=== PATIENT | female | born 1970 | race Caucasian/White ===

== ENCOUNTER 2022-08-02 13:39 | Inpatient (IN) | payer OTHER, SELFPAY ==
--- NOTE | 2022-08-02 | ECG_ITS ---
Test Reason : MEDICAL CLEARINCE Blood Pressure : / mmHG Vent. Rate : 093 BPM Atrial Rate : 093 BPM P-R Int : 112 ms QRS Dur : 086 ms QT Int : 342 ms P-R-T Axes : 045 069 028 degrees QTc Int : 425 ms Normal sinus rhythm Normal ECG No previous ECGs available Referred By: Anny Trevizo Electronically Signed By:Toro Bloom
[2022-08-02 13:55] VITALS: BP 116/66; PULSE 105; RESP 18; TEMP 36.8; O2SAT 99; BMI 28.3
--- NOTE | 2022-08-02 14:03 | ED.PSYCH ---
HPI - Psych General Chief Complaint: Psychiatric Symptoms Stated Complaint: SEC 12, PARANOID PER EMS Time Seen by Provider: 08/02/22 13:53 Source: patient and EMS Mode of arrival: EMS Limitations: no limitations History of Present Illness HPI Narrative: New 2-year-old female who lives with her mother presents via EMS after failure to thrive not taking care of herself since her mother passed in January there are concerns for safety she has been paranoid delusional. Patient told someone that she was going to be departed [place] and that she is going to get a shot in her neck. Patient denies SI and states that she is fine and does not need to be bothered. complaint: suicidal ideation Related Data Home Medications Medication Instructions Recorded Confirmed lorazepam 0.5 mg tablet 0.5 mg PO TID PRN anxiety 08/02/22 08/02/22 trazodone 50 mg tablet 25 mg PO BEDTIME PRN insomnia 08/02/22 08/02/22 Allergies Allergy/AdvReac Type Severity Reaction Status Date / Time No Known Allergies Allergy Unverified 11/14/19 16:42 Review of Systems Review of Systems: Review of systems: General: Patient denies any fever chills recent illness or falls Musculoskeletal: Denies back pain or body aches or other injuries HEENT: denies headache, runny nose, ear pain Respiratory: denies shortness of breath, cough Cardiovascular: no chest pain or palpitations : denies dysuria, frequency Abdomen: no nausea vomiting denies abdominal pain Extremities: no swelling, no pain Skin: no diaphoresis Yes all other systems are reviewed and are negative PMFSH Social History Social History Advance Directives: No Advance Directives Information Provided: No Healthcare Proxy: No Guardian: No Physical Exam Vital Signs: Vital Signs: Last Vital Signs Temp 98.3 F 08/02/22 13:55 Pulse 105 H 08/02/22 13:55 Resp 16 08/02/22 16:08 BP 116/66 08/02/22 13:55 Pulse Ox 99 08/02/22 13:55 O2 Del Method Room Air 08/02/22 13:55 BMI result Body Mass Index 28.3 General: Well-appearing well-nourished in no signs of distress HEENT: Normocephalic atraumatic Neck: No signs of JVD, no masses no tenderness or lymphadenopathy Cardiovascular: Regular rate and rhythm Respiratory: Clear to auscultation bilaterally Abdomen: Soft nontender no masses Extremities: Normal pedal pulses no signs of edema Skin: Dry warm no rashes Back: No tenderness full ROM Course Reevaluation(s) Reevaluation #1: Patient is seen by the crisis they were unsure if the patient met criteria for section 12. I do agree she is not homicidal or suicidal but I do think the patient has impaired judgment is not safe to go home. we did but the patient has Section 12 patient be signed out pending placement Medical Decision Making Medical Decision Making [facility] Narrative: Concern for paranoia and delusions patient has likely baseline minimal problems combined with the grieving process is aspirating current condition patient is also 52 lives mother I do feel that this patient will benefit from crisis evaluation Differential Diagnosis Differential Diagnoses: The differential diagnosis associated with the presentation includes Suicide ideation acute psychosis grief Admission/Observation Consideration of admission/observation: Escalation of care including admission/observation considered Consult Healthcare Provider Management of the patient was discussed with: Interactive Web Developer Lab Data [facility] Lab Attestation statement: I reviewed the patient's lab results. 08/02/22 14:16 08/02/22 14:16 Labs: Lab Results 08/02/22 08/02/22 08/02/22 Range/Units 14:16 14:16 17:20 WBC 15.7 H (4.8-10.8) X10*3/uL RBC 5.05 (4.20-5.50) X10*6/uL Hgb 15.4 (12.0-16.0) g/dl Hct 46.0 (37.0-47.0) % MCV 91.1 (80.0-98.0) fL MCH 30.5 (27.0-33.0) pg MCHC 33.5 (31.0-35.0) g/dl RDW 12.2 (11.0-16.0) % Plt Count 387 (160-400) X10*3/uL MPV 10.5 (9.4-12.3) fL Immature Gran % (Auto) 0.4 (0.0-0.4) % Neut % (Auto) 80.7 H (45-73) % Lymph % (Auto) 12.3 L (20-40) % [place] % (Auto) 6.1 (2-11) % Eos % (Auto) 0.2 (0-4) % Baso % (Auto) 0.3 (0-2) % Lymph # (Auto) 1.9 (1.2-4.9) X10*3/uL [place] # (Auto) 1.0 (0.1-1.2) X10*3/uL Eos # (Auto) 0.0 (0.0-0.4) X10*3/uL Baso # (Auto) 0.0 (0.0-0.2) X10*3/uL Abs Immat Gran (auto) 0.06 H (0.00-0.03) X10*3/uL Absolute Neuts (auto) 12.6 H (2.0-8.3) x10*3/uL Absolute Nucleated RBC 0.000 (0.0-0.012) X10*3/uL Nucleated RBC % (auto) 0.0 (0.0-0.2) /100WBC Sodium 141 (135-145) mmol/L Potassium 3.7 (3.3-5.1) mmol/L Chloride 103 (96-108) mmol/L Carbon Dioxide 25 (22-29) mmol/L Anion Gap 17 (12-20) BUN 21 H (9-16) mg/dL Creatinine 0.70 (0.5-1.4) mg/dL Estim Creat Clear Calc 94.2 Estimated GFR > 60 Random Glucose 93 (60-115) mg/dL Calcium 10.3 H (8.4-10.2) mg/dL Total Bilirubin 1.9 H (0.0-1.0) mg/dL Direct Bilirubin 0.6 H (0.0-0.5) mg/dL AST 24 (5-31) U/L ALT 26 (0-31) U/L Alkaline Phosphatase 110 (39-117) U/L Total Protein 8.4 H (6.5-8.0) g/dL Albumin 4.6 (3.5-5.0) g/dL Lipase 23 (8-78) U/L Urine Opiates Screen Not Detected (Not Detect) Urine Fentanyl Screen Not Detected (Not Detect) Ur Barbiturates Screen Not Detected (Not Detect) Ur Phencyclidine Scrn Not Detected (Not Detect) Ur Amphetamines Screen Not Detected (Not Detect) U Benzodiazepines Scrn Not Detected (Not Detect) Urine Cocaine Screen Not Detected (Not Detect) U Marijuana (THC) Screen Not Detected (Not Detect) Ethyl Alcohol < 10 mg/dL Independent Historian Clinical information obtained from an independent historian. History obtained from or confirmed by: EMS External Record Review External record reviewed: Inpatient record No previous records for review Social Determinants Patient?s care significantly limited by Social Determinants of Health including: Inadequate housing and Problems related to primary support group Discharge Plan Discharge Clinical Impression: Acute psychosis Patient Disposition: Still a Patient Prescriptions: No Action trazodone 50 mg tablet 25 mg PO BEDTIME PRN (Reason: insomnia) lorazepam 0.5 mg tablet 0.5 mg PO TID PRN (Reason: anxiety) Interventions: [place]-Suicide Risk Severity Scale Last Done: 08/02/22 13:57
[2022-08-02 14:20] LABS: MANUAL DIFF FLAG NO
[2022-08-02 14:22] LABS: Basophils Percent Auto 0.3 % (0-2); Eosinophils Percent Auto 0.2 % (0-4); Hemoglobin 15.4 g/dl (12.0-16.0); Imm Gran Abs Auto 0.06 X10*3/uL (0.00-0.03); Imm Gran Pct Auto 0.4 % (0.0-0.4); Lymphocytes Absolute Auto 1.9 X10*3/uL (1.2-4.9); Lymphocytes Percent Auto 12.3 % (20-40); Mean Corpuscular HGB Conc 33.5 g/dl (31.0-35.0); Mean Corpuscular Hemoglobin 30.5 pg (27.0-33.0); Mean Corpuscular Volume 91.1 fL (80.0-98.0); Mean Platelet Volume 10.5 fL (9.4-12.3); Monocytes Percent Auto 6.1 % (2-11); Neutrophils Absolute Auto 12.6 x10*3/uL (2.0-8.3); Neutrophils Percent Auto 80.7 % (45-73); Platelet Count 387 X10*3/uL (160-400); Red Blood Count 5.05 X10*6/uL (4.20-5.50); Red Cell Distribution Width 12.2 % (11.0-16.0); White Blood Count 15.7 X10*3/uL (4.8-10.8)
[2022-08-02 14:46] LABS: Alanine Aminotransferase 26 U/L (0-31); Albumin Level 4.6 g/dL (3.5-5.0); Alkaline Phosphatase 110 U/L (39-117); Anion Gap 17 (12-20); Aspartate Amino Transferase 24 U/L (5-31); Bilirubin Direct 0.6 mg/dL (0.0-0.5); Bilirubin Total 1.9 mg/dL (0.0-1.0); Blood Urea Nitrogen 21 mg/dL (9-16); Calcium 10.3 mg/dL (8.4-10.2); Carbon Dioxide 25 mmol/L (22-29); Chloride 103 mmol/L (96-108); Creatinine Clr Calc Pharmacy 94.2; Estimated Glomerular Filt Rate > 60; Ethanol < 10 mg/dL; Glucose Random 93 mg/dL (60-115); Lipase 23 U/L (8-78); Potassium 3.7 mmol/L (3.3-5.1); Sodium 141 mmol/L (135-145); Total Protein 8.4 g/dL (6.5-8.0)
[2022-08-02 16:08] VITALS: RESP 16
[2022-08-02 17:39] LABS: Amphetamine Screen Urine Not Detected (Not Detect); Barbiturates, Urine Not Detected (Not Detect); Benzodiazepines Screen Urine Not Detected (Not Detect); Cannabinoid Screen Urine Not Detected (Not Detect); Cocaine Screen Urine Not Detected (Not Detect); Fentanyl, urine Not Detected (Not Detect); Opiate Screen Urine Not Detected (Not Detect); Phencyclidine Screen Urine Not Detected (Not Detect)
[2022-08-02] MEDS: LORazepam 0.5 MG TABLET PO (23:15)
[2022-08-02] MEDS: hydrOXYzine HCL 25 MG TABLET PO (23:56)
--- NOTE | 2022-08-03 00:37 | PC.ADMIT ---
Pt presented to [facility] secondary to a section 12 by [facility] [employer] response. Pt arrived to [facility] via ambulance. [facility] was dispatched to the home due to concerns with Pt not caring for herself. It was reported that Pt has been isolating herself since the passing of her mother. She has not been bathing or eating. Pt is reported to be increasingly delusional saying she is going to be deported to [place] and that she will be shot in her neck. Per collateral of Co response Pt presented in the home with increased delusions and paranoia. She has not been eating or sleeping. She has not independently cared for herself and mom has always cared for her. Mom in January and pt has been decompensating. On arrival to the unit patient presents with hypomania. Patient denies any SI/HI or AH/VH. Patient reports anxiety /10 and depression /10. Patient showered on arrival and drank some apple juice. Patient on a 12b. Patient states she feels she does not need to be here in the hospital. Reports she did not shower for 5 days prior to coming to the hospital. Reports being sad over the loss of mother on 02/22/22
[2022-08-03 08:29] VITALS: BP 127/66; PULSE 108; TEMP 36; O2SAT 99
[2022-08-03 10:04] LABS: Alanine Aminotransferase 34 U/L (0-31); Alkaline Phosphatase 93 U/L (39-117); Anion Gap 13 (12-20); Aspartate Amino Transferase 27 U/L (5-31); Bilirubin Total 1.6 mg/dL (0.0-1.0); Blood Urea Nitrogen 23 mg/dL (9-16); Calcium 9.5 mg/dL (8.4-10.2); Carbon Dioxide 27 mmol/L (22-29); Chloride 104 mmol/L (96-108); Cholesterol 120 mg/dL; Creatinine Clr Calc Pharmacy 94.2; Estimated Glomerular Filt Rate > 60; Glucose Fasting 96 mg/dL (60-99); HDL Cholesterol 33 mg/dL; LDL Cholesterol Calculated 75 mg/dl; Sodium 140 mmol/L (135-145); Total Protein 7.1 g/dL (6.5-8.0); Triglycerides 63 mg/dL
[2022-08-03 10:34] LABS: Folate 18.5 ng/mL (> or = 4.0); TSH reflex Free T4 1.48 uIU/mL (0.32-4.0); Vitamin B12 1470 pg/mL (200-900)
[2022-08-03] MEDS: Nicotine 21 MG PATCH.TD24 TRANSDERMA (14:05)
[2022-08-03] MEDS: ARIPiprazole 5 MG TABLET PO (14:06)
--- NOTE | 2022-08-03 15:12 | P.HPPS_ITS ---
HPI Date of Service: 08/03/22 Chief Complaint: Depression pyschosis HPI Narrative: pt YING on section 12 afyter police were called with complaint pt was not caring for herself and had been isolating herself since the passing of her mother. she reportedly has not been bathing or eating or sleeping substantially, as well as becoming increasingly delusional re being deported to [place] and shot in her neck. she had always lived with and been cared for by her mother until last January, when her mother . calm, cooperative. somewhat disorganized and tangential, seeming to be talking through how she might have gotten into the hospital, who might have called, says she maybe had greasy hair and had not showered and the neighbor saw her putting out the trash... maybe she was the one who called the police... maybe not. discussed people leaving notes on her car, like isac pretty notes, which she initially said made her believe that she had been charged with or convicted of a crime, but she was unable to describe the content of the notes that made her believe that. later she said she presence of the notes made her believe she was going to be deported to [place]. claims she never said anything about being shot. much of rambling interview spent with pt very anxiously asking questions about law, due process, immigration, etc. paranoid delusion sh mahendra has been charged with some crime she has not been informed of and perhaps was even convicted of said crime in absentia and may be imminently deported to [place]. acknowledges she has been on abilify in the past and been helped by it, reluctantly agrees to restart it here. Past Psychiatric History: psych hosps: more than 2. 2015 and earlier. reprots they were 2/2 breakups with her former boyfriend. SA: denies SIB: denies outpt: reports has zoom therapy with chastity ricci at [facility], none in several weeks, though. also has prescriber at [facility], [facility]. later acknowledges she has been prescribed abilify as well, which allowed her to feel more easy-going. Medical Evaluation Reviewed: Yes [facility] Narrative: denies medical problems Family History: denies Social History: lives in own condo in [place], which was left to her by her mother when her mother February 22, 2022. she was living there with her mother at the time of her mother's passing. 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 Substance History: tob: cigs < 1 ppd alcohol: denies cannabis: denies other: denies Trauma History: denies Diagnostics Vital Signs (24Hr): Vital Signs - 24 hr 08/02/22 16:08 08/03/22 08:29 Temperature 96.8 F Pulse Rate 108 H Respiratory Rate 16 Blood Pressure 127/66 Pulse Oximetry 99 Oxygen Delivery Method Room Air BMI result Body Mass Index 28.3 Labs 08/02/22 14:16 08/03/22 08:41 Labs: Laboratory Results - last 48 hr 08/02/22 08/02/22 08/02/22 14:16 14:16 17:20 WBC 15.7 H RBC 5.05 Hgb 15.4 Hct 46.0 MCV 91.1 MCH 30.5 MCHC 33.5 RDW 12.2 Plt Count 387 MPV 10.5 Immature Gran % (Auto) 0.4 Neut % (Auto) 80.7 H Lymph % (Auto) 12.3 L [place] % (Auto) 6.1 Eos % (Auto) 0.2 Baso % (Auto) 0.3 Lymph # (Auto) 1.9 [place] # (Auto) 1.0 Eos # (Auto) 0.0 Baso # (Auto) 0.0 Abs Immat Gran (auto) 0.06 H Absolute Neuts (auto) 12.6 H Absolute Nucleated RBC 0.000 Nucleated RBC % (auto) 0.0 Sodium 141 Potassium 3.7 Chloride 103 Carbon Dioxide 25 Anion Gap 17 BUN 21 H Creatinine 0.70 Estim Creat Clear Calc 94.2 Estimated GFR > 60 Random Glucose 93 Fasting Glucose Calcium 10.3 H Total Bilirubin 1.9 H Direct Bilirubin 0.6 H AST 24 ALT 26 Alkaline Phosphatase 110 Total Protein 8.4 H Albumin 4.6 Triglycerides Cholesterol LDL Cholesterol, Calc HDL Cholesterol Lipase 23 Vitamin B12 Folate TSH Urine Opiates Screen Not Detected Urine Fentanyl Screen Not Detected Ur Barbiturates Screen Not Detected Ur Phencyclidine Scrn Not Detected Ur Amphetamines Screen Not Detected U Benzodiazepines Scrn Not Detected Urine Cocaine Screen Not Detected U Marijuana (THC) Screen Not Detected Ethyl Alcohol < 10 08/03/22 08:41 WBC RBC Hgb Hct MCV MCH MCHC RDW Plt Count MPV Immature Gran % (Auto) Neut % (Auto) Lymph % (Auto) [place] % (Auto) Eos % (Auto) Baso % (Auto) Lymph # (Auto) [place] # (Auto) Eos # (Auto) Baso # (Auto) Abs Immat Gran (auto) Absolute Neuts (auto) Absolute Nucleated RBC Nucleated RBC % (auto) Sodium 140 Potassium 4.0 Chloride 104 Carbon Dioxide 27 Anion Gap 13 BUN 23 H Creatinine 0.70 Estim Creat Clear Calc 94.2 Estimated GFR > 60 Random Glucose Fasting Glucose 96 Calcium 9.5 D Total Bilirubin 1.6 H Direct Bilirubin AST 27 ALT 34 H Alkaline Phosphatase 93 Total Protein 7.1 Albumin 4.0 Triglycerides 63 Cholesterol 120 LDL Cholesterol, Calc 75 HDL Cholesterol 33 Lipase Vitamin B12 1470 H Folate 18.5 TSH 1.48 Urine Opiates Screen Urine Fentanyl Screen Ur Barbiturates Screen Ur Phencyclidine Scrn Ur Amphetamines Screen U Benzodiazepines Scrn Urine Cocaine Screen U Marijuana (THC) Screen Ethyl Alcohol Meds/Allergies Meds Home Medications Medication Instructions Recorded Confirmed Type lorazepam 0.5 mg tablet 0.5 mg PO TID PRN anxiety 08/02/22 08/02/22 History trazodone 50 mg tablet 25 mg PO BEDTIME PRN insomnia 08/02/22 08/02/22 History Allergies Allergies Allergy/AdvReac Type Severity Reaction Status Date / Time No Known Allergies Allergy Unverified 11/14/19 16:42 Mental Status Exam Mental Status Exam Narrative: anxious appearing, perhaps hyperverbal, but generally calm and cooperative. adequately dressed and groomed. some PMA of frequent shifting about in her seat. speech incr rate, amount. decr latency. nml latency, prosody. thoughts somewhat disorganized, digressive, tangential; paranoid delusions she has been convicted of a crime in [facility] and may imminently be deported to [place]. affect constricted, hyper-intense, non-labile. mood fine. denies SI/SIBI/HI/AVH. Assessment & Plan Assessment & Plan (1) Psychotic disorder with delusions: Status: Acute Code(s): F29 - Unspecified psychosis not due to a substance or known physiological condition Plan 08/03: eucerin for dry feet, ashwin patch for nicotine dep, abilify 5 mg daily for psychosis. pt has reportedly been improved on abilify, dose unknown. Patient educated on: diagnosis and medication risk/benefits Reason for continued inpatient stay Substantial Risk for: inability to function and rapid decompensation Statement Statement: I have reviewed the history and physical and performed a pertinent examination on my patient. No changes have occurred unless specified. If the History and Physical was not performed prior to admission, the Hospitalist's service will be consulted for completing the admission physical. Time Spent With Patient Time: Total time managing care of this patient today __55__ minutes.
[2022-08-03] MEDS: Acetaminophen 325 MG TABLET 650 MG PO (16:47)
[2022-08-03 18:00] VITALS: BP 116/60; PULSE 98; RESP 16; TEMP 36.4; O2SAT 96
[2022-08-03 20:00] VITALS: BP 114/77; PULSE 88; RESP 16; TEMP 36.9; O2SAT 97
--- NOTE | 2022-08-03 21:35 | PC.NURSE ---
Cordelia was admitted on a 12B for her first IPLOC for safety and stabilization, diagnosis depression with psychotic features. This evening she has been isolating in her room, laying in bed, responsive to verbal stimuli, guarded, poor eye contact, reports I'm ok stated she feels safe and doesn't need to be in the hospital, independent with ADL', declined prescribed cream for feet, no scheduled HS meds, No reported /observed behavior issues, POC as outlined, 15 min unit safety observation.
--- NOTE | 2022-08-04 06:11 | PC.NURSE ---
Patient has been lying naked with underwear on, on the floor next to her bed, on the overnight shift. Patient has been redirected several times to please put on clothing. Patient obliged and will get dressed, then some time will pass, and she will be naked again. Door to room is being kept closed so no other patient are looking in.
[2022-08-04 08:30] VITALS: BP 115/67; PULSE 102; RESP 18; TEMP 36.6; O2SAT 98
[2022-08-04] MEDS: ARIPiprazole 5 MG TABLET PO (08:30)
--- NOTE | 2022-08-04 10:17 | PC.NURSE ---
0899 observed Pt lying on floor, with blanket wrapped around her. Corn Press Operator encouraged her to lay on the bed, to be more comfortable. Pt replied , no I'm fine here investment underwriter asked if she lays on the floor at home ? Pt replied sometimes.
--- NOTE | 2022-08-04 13:39 | PC.NURSE ---
observed patient clothed in prone position on mattress, which on the floor. Appears to be sleeping.
--- NOTE | 2022-08-04 13:54 | P.PNPSI_ITS ---
Subjective Subjective Date of Service: 08/04/22 Reason For Visit: Depression pyschosis Interim History: pt found lying naked on her bathroom floor, face down (as reported by MESERET herrera). pt asserted she was fine on the floor and not cold despite theobold reporting visible gooseflesh. RN came and theobold and RN raised and dressed pt. mattress was placed on the floor. pt did not answer questions regarding why she preferred to be on the bathroom floor. per staff, gordy. carlos D/C. confused about where her room was located on the unit around 10 pm. lying on floor from 0300 through morning, naked. was repeatedly redirected to at least cover herself with a blanket, which she would do, but which she invariably removed eventually. Mental Status Exam Mental Status Exam Narrative: in bathroom. not cooperative. speech decr in rate, amount. nml loudness. incr latency. poverty of thought. mood unknown, no SI/HI/AVH expressed. Diagnostics Vital Signs (24Hr): Vital Signs - 24 hr 08/03/22 18:00 08/03/22 20:00 08/04/22 08:30 Temperature 97.6 F 98.4 F 97.9 F Pulse Rate 98 88 102 H Respiratory Rate 16 16 18 Blood Pressure 116/60 114/77 115/67 Pulse Oximetry 96 97 98 Oxygen Delivery Method Room Air Room Air Room Air BMI result Body Mass Index 28.3 Labs 08/02/22 14:16 08/03/22 08:41 Labs: Laboratory Results - last 48 hr 08/02/22 08/02/22 08/02/22 14:16 14:16 17:20 WBC 15.7 H RBC 5.05 Hgb 15.4 Hct 46.0 MCV 91.1 MCH 30.5 MCHC 33.5 RDW 12.2 Plt Count 387 MPV 10.5 Immature Gran % (Auto) 0.4 Neut % (Auto) 80.7 H Lymph % (Auto) 12.3 L [place] % (Auto) 6.1 Eos % (Auto) 0.2 Baso % (Auto) 0.3 Lymph # (Auto) 1.9 [place] # (Auto) 1.0 Eos # (Auto) 0.0 Baso # (Auto) 0.0 Abs Immat Gran (auto) 0.06 H Absolute Neuts (auto) 12.6 H Absolute Nucleated RBC 0.000 Nucleated RBC % (auto) 0.0 Sodium 141 Potassium 3.7 Chloride 103 Carbon Dioxide 25 Anion Gap 17 BUN 21 H Creatinine 0.70 Estim Creat Clear Calc 94.2 Estimated GFR > 60 Random Glucose 93 Fasting Glucose Calcium 10.3 H Total Bilirubin 1.9 H Direct Bilirubin 0.6 H AST 24 ALT 26 Alkaline Phosphatase 110 Total Protein 8.4 H Albumin 4.6 Triglycerides Cholesterol LDL Cholesterol, Calc HDL Cholesterol Lipase 23 Vitamin B12 Folate TSH Urine Opiates Screen Not Detected Urine Fentanyl Screen Not Detected Ur Barbiturates Screen Not Detected Ur Phencyclidine Scrn Not Detected Ur Amphetamines Screen Not Detected U Benzodiazepines Scrn Not Detected Urine Cocaine Screen Not Detected U Marijuana (THC) Screen Not Detected Ethyl Alcohol < 10 08/03/22 08:41 WBC RBC Hgb Hct MCV MCH MCHC RDW Plt Count MPV Immature Gran % (Auto) Neut % (Auto) Lymph % (Auto) [place] % (Auto) Eos % (Auto) Baso % (Auto) Lymph # (Auto) [place] # (Auto) Eos # (Auto) Baso # (Auto) Abs Immat Gran (auto) Absolute Neuts (auto) Absolute Nucleated RBC Nucleated RBC % (auto) Sodium 140 Potassium 4.0 Chloride 104 Carbon Dioxide 27 Anion Gap 13 BUN 23 H Creatinine 0.70 Estim Creat Clear Calc 94.2 Estimated GFR > 60 Random Glucose Fasting Glucose 96 Calcium 9.5 D Total Bilirubin 1.6 H Direct Bilirubin AST 27 ALT 34 H Alkaline Phosphatase 93 Total Protein 7.1 Albumin 4.0 Triglycerides 63 Cholesterol 120 LDL Cholesterol, Calc 75 HDL Cholesterol 33 Lipase Vitamin B12 1470 H Folate 18.5 TSH 1.48 Urine Opiates Screen Urine Fentanyl Screen Ur Barbiturates Screen Ur Phencyclidine Scrn Ur Amphetamines Screen U Benzodiazepines Scrn Urine Cocaine Screen U Marijuana (THC) Screen Ethyl Alcohol Medications Medications Current Medications Acetaminophen (Acetaminophen 325 Mg Tablet) 650 mg PO Q6H PRN PRN Reason: Headache/Pain Mild Scale (1-3) Last Admin: 08/03/22 16:47 Dose: 325 mg Al Hydroxide/Mg Hydroxide (Magnesium Hydrox/Alum Hydrox 30 Ml Oral.Susp) 30 ml PO Q6H PRN PRN Reason: Heartburn/Nausea Aripiprazole (Aripiprazole 5 Mg Tablet) 5 mg PO DAILY STEVE Last Admin: 08/04/22 08:30 Dose: 5 mg Hydroxyzine HCl (Hydroxyzine Hcl 25 Mg Tablet) 25 mg PO Q6H PRN PRN Reason: Anxiety Last Admin: 08/02/22 23:56 Dose: 25 mg Lorazepam (Lorazepam 0.5 Mg Tablet) 0.5 mg PO TID PRN PRN Reason: anxiety Last Admin: 08/02/22 23:15 Dose: 0.5 mg Magnesium Hydroxide (Milk Of Magnesia 30 Ml Oral.Susp) 30 ml PO DAILY PRN PRN Reason: Constipation Multi-Ingred Cream/Lotion/Oil/Oint (Mineral Oil/Petrolatum,White 106 Gm Tube) 1 appl TOPICAL BID STEVE; Protocol Last Admin: 08/04/22 08:32 Dose: Not Given Nicotine (Nicotine 21 Mg Patch.Td24) 21 mg TRANSDERMA DAILY [facility] Last Admin: 08/04/22 08:39 Dose: Not Given Trazodone HCl (Trazodone Hcl 50 Mg Tablet) 50 mg PO BEDTIME MRX1 PRN PRN Reason: Insomnia Allergies Allergies Allergy/AdvReac Type Severity Reaction Status Date / Time No Known Allergies Allergy Unverified 11/14/19 16:42 Assessment & Plan Assessment & Plan (1) Psychotic disorder with delusions: Status: Acute Code(s): F29 - Unspecified psychosis not due to a substance or known physiological condition Plan 08/03: eucerin for dry feet, ashwin patch for nicotine dep, abilify 5 mg daily for psychosis. pt has reportedly been improved on abilify, dose unknown. 08/04: disorganized behavior, lying naked on the floor all night and then on bathroom floor today. increase abilify to 10 mg daily. Reason for continued inpatient stay Substantial Risk for: harm to self and inability to function Time Spent With Patient Time: Total time managing care of this patient today __25__ minutes.
--- NOTE | 2022-08-04 16:26 | PC.NURSE ---
Addendum entered by Madison Loyd RN 08/04/22 16:35: Shortly after RN gave pt the water pitcher, pt started screaming/banging on the magana. When RN approached, pt was in her bathroom facing the wall and she yelled it's too much water I can't drink this all right now! RN tried to assure pt that she did not have to drink it all at once. Pt still appeared anxious, RN offered PRN medication but she refused. Pt still appeared confused and tried to continue drinking out of the pitcher. Pt then dumped the water out in the sink. Original Note: Due to pt laying on the floor for several hours, Dr. Mullins recommended encouraging PO fluids to prevent ARF from rhabdo. RN brought pt a pitcher of ice water, provided teaching and encouraged her to take sips. Pt avoided eye contact and refused and asked RN to go away. Pt continues to lay face down on the mattress on her floor.
[2022-08-04 20:00] VITALS: RESP 16
[2022-08-05 06:00] VITALS: RESP 18
--- NOTE | 2022-08-05 09:55 | PC.NURSE ---
Patient had episode of taking clothes off, staring out the window, flat, slow to react.
--- NOTE | 2022-08-05 10:37 | PC.NURSE ---
Pt continues to lay on her bedroom floor without clothes on. RN tried to encourage pt to put on clothes and pt refused. When RN asked why pt needs to lay on the floor, pt stated it's cooler. RN offered to give pt an ice pack to help her cool off and she refused and said no I'm fine here thank you.
--- NOTE | 2022-08-05 15:58 | HO.PSYCHPN ---
Subjective Subjective Date of Service: 08/05/22 Reason For Visit: Depression pyschosis Interim History: pt lying on unmade bed rather than her own, which was made. wearing hospital josh. looking away from MD, never turned toward MD during interview. appeared somewhat nervous or fidgety. vague, evasive answers. ultimately requested MD leave. MD provided brush warning and explained commitment process, informed pt filing would occur today. pt states she does not believe she has a mental illness and does not need medication. per staff, 12b up today. lying on floor of bathroom naked. poor eye contact. remained clothed eves. disorganzied, agitated behavior yesterday after having been provided with a pitcher of water, screaming and banging the magana in her bathroom saying it is too much water for anyone to drink. Mental Status Exam Mental Status Exam Narrative: anxious appearing, generally calm and cooperative. adequately dressed and groomed in hospital josh. some PMA of picking at her fingernails. speech incr rate, decr amount. nml latency, prosody. thoughts seemingly linear but but vague and evasive, as well as terse, responses affect constricted, normo-intense, non-labile. no SI/SIBI/HI/AVH expressed. Diagnostics Vital Signs (24Hr): Vital Signs - 24 hr 08/04/22 20:00 08/05/22 06:00 Respiratory Rate 16 18 BMI result Body Mass Index 28.3 Labs 08/02/22 14:16 08/03/22 08:41 Medications Medications Current Medications Acetaminophen (Acetaminophen 325 Mg Tablet) 650 mg PO Q6H PRN PRN Reason: Headache/Pain Mild Scale (1-3) Last Admin: 08/03/22 16:47 Dose: 325 mg Al Hydroxide/Mg Hydroxide (Magnesium Hydrox/Alum Hydrox 30 Ml Oral.Susp) 30 ml PO Q6H PRN PRN Reason: Heartburn/Nausea Aripiprazole (Aripiprazole 10 Mg Tablet) 10 mg PO DAILY STEVE Last Admin: 08/05/22 09:15 Dose: Not Given Hydroxyzine HCl (Hydroxyzine Hcl 25 Mg Tablet) 25 mg PO Q6H PRN PRN Reason: Anxiety Last Admin: 08/02/22 23:56 Dose: 25 mg Lorazepam (Lorazepam 0.5 Mg Tablet) 0.5 mg PO TID PRN PRN Reason: anxiety Last Admin: 08/02/22 23:15 Dose: 0.5 mg Magnesium Hydroxide (Milk Of Magnesia 30 Ml Oral.Susp) 30 ml PO DAILY PRN PRN Reason: Constipation Multi-Ingred Cream/Lotion/Oil/Oint (Mineral Oil/Petrolatum,White 106 Gm Tube) 1 appl TOPICAL BID STEVE; Protocol Last Admin: 08/05/22 09:15 Dose: Not Given Nicotine (Nicotine 21 Mg Patch.Td24) 21 mg TRANSDERMA DAILY [facility] Last Admin: 08/05/22 09:15 Dose: Not Given Trazodone HCl (Trazodone Hcl 50 Mg Tablet) 50 mg PO BEDTIME MRX1 PRN PRN Reason: Insomnia Allergies Allergies Allergy/AdvReac Type Severity Reaction Status Date / Time No Known Allergies Allergy Unverified 11/14/19 16:42 Assessment & Plan Assessment & Plan (1) Psychotic disorder with delusions: Status: Acute Code(s): F29 - Unspecified psychosis not due to a substance or known physiological condition Plan 08/03: eucerin for dry feet, ashwin patch for nicotine dep, abilify 5 mg daily for psychosis. pt has reportedly been improved on abilify, dose unknown. 08/04:? disorganized behavior, lying naked on the floor all night and then on bathroom floor today.? increase abilify to 10 mg daily. 08/05: dressed, lying on a bed today. evasive and terse. vague. anxious, uncomfortable. states she believes she does not have a mental illness and does not need to take medication. commitment paperwork completed. Reason for continued inpatient stay Substantial Risk for: harm to self and inability to function Time Spent With Patient Time: Total time managing care of this patient today __35__ minutes.
[2022-08-05 18:00] VITALS: RESP 20
--- NOTE | 2022-08-05 18:12 | PC.NURSE ---
Pt ate 1/2 pizza for dinner
[2022-08-06 06:00] VITALS: RESP 18
--- NOTE | 2022-08-06 17:23 | P.PNPSI_ITS ---
Subjective Subjective Date of Service: 08/06/22 Reason For Visit: Depression pyschosis Subjective Notes: Section 7 Interim History: Pt mostly in bed. minimally engaging with staff or peers. She denies any concerns, most of the interview in bed, eyes close. She has declined most food. Continues to disrobe in her room at times. Per nursing, pt slept most of the nig ht. She declined abilify. Medication Compliance: Yes Review of Systems Review of Systems Review of systems: General: Patient denies any fever chills recent illness or falls Musculoskeletal: Denies back pain or body aches or other injuries HEENT: denies headache, runny nose, ear pain Respiratory: denies shortness of breath, cough Cardiovascular: no chest pain or palpitations : denies dysuria, frequency Abdomen: no nausea vomiting denies abdominal pain Extremities: no swelling, no pain Skin: no diaphoresis Yes all other systems are reviewed and are negative Mental Status Exam Mental Status Exam Narrative: Alert, in bed. adequately dressed and groomed in [facility]. Minimally engaging in conversation, poor eye contact speech incr rate, decr amount. nml latency, prosody. thoughts seemingly linear but but vague and evasive, as well as terse, responses affect constricted, normo-intense, non-labile. no SI/SIBI/HI/AVH expressed. Diagnostics Vital Signs (24Hr): Vital Signs - 24 hr 08/05/22 18:00 08/06/22 06:00 Respiratory Rate 20 18 BMI result Body Mass Index 28.3 Labs 08/02/22 14:16 08/03/22 08:41 Medications Medications Current Medications Acetaminophen (Acetaminophen 325 Mg Tablet) 650 mg PO Q6H PRN PRN Reason: Headache/Pain Mild Scale (1-3) Last Admin: 08/03/22 16:47 Dose: 325 mg Al Hydroxide/Mg Hydroxide (Magnesium Hydrox/Alum Hydrox 30 Ml Oral.Susp) 30 ml PO Q6H PRN PRN Reason: Heartburn/Nausea Aripiprazole (Aripiprazole 10 Mg Tablet) 10 mg PO DAILY STEVE Last Admin: 08/06/22 08:20 Dose: Not Given Hydroxyzine HCl (Hydroxyzine Hcl 25 Mg Tablet) 25 mg PO Q6H PRN PRN Reason: Anxiety Last Admin: 08/02/22 23:56 Dose: 25 mg Lorazepam (Lorazepam 0.5 Mg Tablet) 0.5 mg PO TID PRN PRN Reason: anxiety Last Admin: 08/02/22 23:15 Dose: 0.5 mg Magnesium Hydroxide (Milk Of Magnesia 30 Ml Oral.Susp) 30 ml PO DAILY PRN PRN Reason: Constipation Multi-Ingred Cream/Lotion/Oil/Oint (Mineral Oil/Petrolatum,White 106 Gm Tube) 1 appl TOPICAL BID STEVE; Protocol Last Admin: 08/06/22 08:21 Dose: Not Given Nicotine (Nicotine 21 Mg Patch.Td24) 21 mg TRANSDERMA DAILY STEVE Last Admin: 08/06/22 08:21 Dose: Not Given Trazodone HCl (Trazodone Hcl 50 Mg Tablet) 50 mg PO BEDTIME MRX1 PRN PRN Reason: Insomnia Allergies Allergies Allergy/AdvReac Type Severity Reaction Status Date / Time No Known Allergies Allergy Unverified 11/14/19 16:42 Assessment & Plan Assessment & Plan (1) Psychotic disorder with delusions: Status: Acute Code(s): F29 - Unspecified psychosis not due to a substance or known physiological condition Plan 08/03: eucerin for dry feet, ashwin patch for nicotine dep, abilify 5 mg daily for psychosis. pt has reportedly been improved on abilify, dose unknown. 08/04:? disorganized behavior, lying naked on the floor all night and then on bathroom floor today.? increase abilify to 10 mg daily. 08/05: dressed, lying on a bed today. evasive and terse. vague. anxious, uncomfortable. states she believes she does not have a mental illness and does not need to take medication. commitment paperwork completed. 08/06 continue tx. Reason for continued inpatient stay Substantial Risk for: inability to function Time Spent With Patient Time: Total time managing care of this patient today ____ minutes.
--- NOTE | 2022-08-07 05:18 | PC.NURSE ---
Pt ate 1 banana and 1 sherbet from [id number].
[2022-08-07 06:00] VITALS: RESP 18
[2022-08-07] MEDS: Nicotine 21 MG PATCH.TD24 TRANSDERMA (15:10)
--- NOTE | 2022-08-07 18:26 | HO.PSYCHPN ---
Subjective Subjective Date of Service: 08/07/22 Reason For Visit: Depression pyschosis Subjective Notes: Section 7 Interim History: Pt casually dressed, staring at ceiling. Pt reports she broke the law, people's law. She reports she offended people and that was wrong. She reports she does not understand why she is in hospital but also does not know where she should be instead. She has declined most food. Continues to disrobe in her room at times. Per nursing, pt slept most of the night. She declined abilify. Last evening pt had another episode of disrobing in room. Review of Systems Review of Systems Review of systems: General: Patient denies any fever chills recent illness or falls Musculoskeletal: Denies back pain or body aches or other injuries HEENT: denies headache, runny nose, ear pain Respiratory: denies shortness of breath, cough Cardiovascular: no chest pain or palpitations : denies dysuria, frequency Abdomen: no nausea vomiting denies abdominal pain Extremities: no swelling, no pain Skin: no diaphoresis Yes all other systems are reviewed and are negative Mental Status Exam Mental Status Exam Narrative: Alert, in bed. adequately dressed and groomed in hospital [facility]. Minimally engaging in conversation, poor eye contact speech incr rate, decr amount. nml latency, prosody. thoughts seemingly linear but but vague and evasive, as well as terse, responses affect constricted, normo-intense, non-labile. no SI/SIBI/HI/AVH expressed. Diagnostics Vital Signs (24Hr): Vital Signs - 24 hr 08/07/22 06:00 Respiratory Rate 18 BMI result Body Mass Index 28.3 Labs 08/02/22 14:16 08/03/22 08:41 Medications Medications Current Medications Acetaminophen (Acetaminophen 325 Mg Tablet) 650 mg PO Q6H PRN PRN Reason: Headache/Pain Mild Scale (1-3) Last Admin: 08/03/22 16:47 Dose: 325 mg Al Hydroxide/Mg Hydroxide (Magnesium Hydrox/Alum Hydrox 30 Ml Oral.Susp) 30 ml PO Q6H PRN PRN Reason: Heartburn/Nausea Aripiprazole (Aripiprazole 10 Mg Tablet) 10 mg PO DAILY STEVE Last Admin: 08/07/22 08:52 Dose: Not Given Hydroxyzine HCl (Hydroxyzine Hcl 25 Mg Tablet) 25 mg PO Q6H PRN PRN Reason: Anxiety Last Admin: 08/02/22 23:56 Dose: 25 mg Lorazepam (Lorazepam 0.5 Mg Tablet) 0.5 mg PO TID PRN PRN Reason: anxiety Last Admin: 08/02/22 23:15 Dose: 0.5 mg Magnesium Hydroxide (Milk Of Magnesia 30 Ml Oral.Susp) 30 ml PO DAILY PRN PRN Reason: Constipation Multi-Ingred Cream/Lotion/Oil/Oint (Mineral Oil/Petrolatum,White 106 Gm Tube) 1 appl TOPICAL BID STEVE; Protocol Last Admin: 08/07/22 08:53 Dose: Not Given Nicotine (Nicotine 21 Mg Patch.Td24) 21 mg TRANSDERMA DAILY STEVE Last Admin: 08/07/22 15:10 Dose: 21 mg Trazodone HCl (Trazodone Hcl 50 Mg Tablet) 50 mg PO BEDTIME MRX1 PRN PRN Reason: Insomnia Allergies Allergies Allergy/AdvReac Type Severity Reaction Status Date / Time No Known Allergies Allergy Unverified 11/14/19 16:42 Assessment & Plan Assessment & Plan (1) Psychotic disorder with delusions: Status: Acute Code(s): F29 - Unspecified psychosis not due to a substance or known physiological condition Plan 08/03: eucerin for dry feet, ashwin patch for nicotine dep, abilify 5 mg daily for psychosis. pt has reportedly been improved on abilify, dose unknown. 08/04:? disorganized behavior, lying naked on the floor all night and then on bathroom floor today.? increase abilify to 10 mg daily. 08/05: dressed, lying on a bed today. evasive and terse. vague. anxious, uncomfortable. states she believes she does not have a mental illness and does not need to take medication. commitment paperwork completed. 08/06 continue tx. 08/07 continue tx. Reason for continued inpatient stay Substantial Risk for: inability to function Time Spent With Patient Time: Total time managing care of this patient today ____ minutes.
[2022-08-07 20:15] VITALS: RESP 16; TEMP 36.6
--- NOTE | 2022-08-08 15:57 | P.PNPSI_ITS ---
Subjective Subjective Date of Service: 08/08/22 Reason For Visit: Depression pyschosis Interim History: pt found lying on her bed dressed in maroon sweatsuit. came to interview room for interview. stated her mood is ok but appeared about to cry. no eye contact initially. allowed that she is depressed. began expressing his concern for pt's state and tried to reason with her about taking abilify, including that she had told MD that she had been on the medication in the past and it had been helpful for her. pt only replied i'll be fine and i'll be OK to MD's expressions of concern and requests that she begin to take medication again. soon she made intense eye contact and said, i'm deeply sorry to MD. MD asked what for, and she replied, i'm deeply sorry for jose thering everybody. she asked to leave the interview and hurried out the door. per staff, isolating, staring. lying in bed. denies psych Sx. no eye contact. refusing meds. appears to sleep all NOC. Mental Status Exam Mental Status Exam Narrative: tense appearing, generally calm and cooperative. adequately dressed and groomed in maroon sweatsuit. no PMA/PMR. speech decr rate, decr amount. incr latency, flattened prosody. thoughts vague and evasive, as well as terse, responses. affect constricted, normo-intense, min-labile. no SI/SIBI/HI/AVH expressed. Diagnostics Vital Signs (24Hr): Vital Signs - 24 hr 08/07/22 20:15 Temperature 97.8 F Respiratory Rate 16 BMI result Body Mass Index 28.3 Labs 08/02/22 14:16 08/03/22 08:41 Medications Medications Current Medications Acetaminophen (Acetaminophen 325 Mg Tablet) 650 mg PO Q6H PRN PRN Reason: Headache/Pain Mild Scale (1-3) Last Admin: 08/03/22 16:47 Dose: 325 mg Al Hydroxide/Mg Hydroxide (Magnesium Hydrox/Alum Hydrox 30 Ml Oral.Susp) 30 ml PO Q6H PRN PRN Reason: Heartburn/Nausea Aripiprazole (Aripiprazole 10 Mg Tablet) 10 mg PO DAILY STEVE Last Admin: 08/08/22 09:15 Dose: Not Given Hydroxyzine HCl (Hydroxyzine Hcl 25 Mg Tablet) 25 mg PO Q6H PRN PRN Reason: Anxiety Last Admin: 08/02/22 23:56 Dose: 25 mg Magnesium Hydroxide (Milk Of Magnesia 30 Ml Oral.Susp) 30 ml PO DAILY PRN PRN Reason: Constipation Multi-Ingred Cream/Lotion/Oil/Oint (Mineral Oil/Petrolatum,White 106 Gm Tube) 1 appl TOPICAL BID STEVE; Protocol Last Admin: 08/08/22 09:15 Dose: Not Given Nicotine (Nicotine 21 Mg Patch.Td24) 21 mg TRANSDERMA DAILY STEVE Last Admin: 08/08/22 09:15 Dose: Not Given Trazodone HCl (Trazodone Hcl 50 Mg Tablet) 50 mg PO BEDTIME MRX1 PRN PRN Reason: Insomnia Allergies Allergies Allergy/AdvReac Type Severity Reaction Status Date / Time No Known Allergies Allergy Unverified 11/14/19 16:42 Assessment & Plan Assessment & Plan (1) Psychotic disorder with delusions: Status: Acute Code(s): F29 - Unspecified psychosis not due to a substance or known physiological co ndition Plan 08/03: eucerin for dry feet, ashwin patch for nicotine dep, abilify 5 mg daily for psychosis. pt has reportedly been improved on abilify, dose unknown. 08/04:? disorganized behavior, lying naked on the floor all night and then on bathroom floor today.? increase abilify to 10 mg daily. 08/05: dressed, lying on a bed today. evasive and terse. vague. anxious, uncomfortable. states she believes she does not have a mental illness and does not need to take medication. commitment paperwork completed. 08/06 continue tx. 08/07 continue tx. 08/08: came out of room for interview. no unsafe behaviors over weekend, but bizarre staring for long periods, isolative. declines to take medications, saying only, i'll be fine as MD expresses concern and encourages her to take them. guilt over bothering everybody. Reason for continued inpatient stay Substantial Risk for: harm to self, inability to function and rapid decompensation Time Spent With Patient Time: Total time managing care of this patient today _25___ minutes.
[2022-08-08 18:00] VITALS: RESP 18
--- NOTE | 2022-08-09 13:22 | P.PNPSI_ITS ---
Subjective Subjective Date of Service: 08/09/22 Reason For Visit: Depression pyschosis Interim History: lying in bed, not cooperative. mutters she is OK, turns face away from MD toward wall, eyes become watery. MD observes it appears she does not wish to speak with MD, she nods her head. per staff, eating and sleeping. thought her contact lens polisher was someone she knew named Ed. selectively mute in [place]. walked into a bedroom not her own. pacing, much time staring at wall. pacing until 0100 last NOC. Mental Status Exam Mental Status Exam Narrative: tense appearing, calm and uncooperative. adequately dressed and groomed in maroon sweatsuit. no PMA/PMR. speech decr rate, decr amount. incr latency, flattened prosody. thoughts: terse responses. affect constricted, normo-i ntense, min-labile. no SI/SIBI/HI/AVH expressed. Diagnostics Vital Signs (24Hr): Vital Signs - 24 hr 08/08/22 18:00 Respiratory Rate 18 BMI result Body Mass Index 28.3 Labs 08/02/22 14:16 08/03/22 08:41 Medications Medications Current Medications Acetaminophen (Acetaminophen 325 Mg Tablet) 650 mg PO Q6H PRN PRN Reason: Headache/Pain Mild Scale (1-3) Last Admin: 08/03/22 16:47 Dose: 325 mg Al Hydroxide/Mg Hydroxide (Magnesium Hydrox/Alum Hydrox 30 Ml Oral.Susp) 30 ml PO Q6H PRN PRN Reason: Heartburn/Nausea Aripiprazole (Aripiprazole 10 Mg Tablet) 10 mg PO DAILY [facility] Last Admin: 08/09/22 09:09 Dose: Not Given Hydroxyzine HCl (Hydroxyzine Hcl 25 Mg Tablet) 25 mg PO Q6H PRN PRN Reason: Anxiety Last Admin: 08/02/22 23:56 Dose: 25 mg Magnesium Hydroxide (Milk Of Magnesia 30 Ml Oral.Susp) 30 ml PO DAILY PRN PRN Reason: Constipation Multi-Ingred Cream/Lotion/Oil/Oint (Mineral Oil/Petrolatum,White 106 Gm Tube) 1 appl TOPICAL BID STEVE; Protocol Last Admin: 08/09/22 09:09 Dose: Not Given Nicotine (Nicotine 21 Mg Patch.Td24) 21 mg TRANSDERMA DAILY [facility] Last Admin: 08/09/22 09:09 Dose: Not Given Trazodone HCl (Trazodone Hcl 50 Mg Tablet) 50 mg PO BEDTIME MRX1 PRN PRN Reason: Insomnia Allergies Allergies Allergy/AdvReac Type Severity Reaction Status Date / Time No Known Allergies Allergy Unverified 11/14/19 16:42 Assessment & Plan Assessment & Plan (1) Psychotic disorder with delusions: Status: Acute Code(s): F29 - Unspecified psychosis not due to a substance or known physiological condition Plan 08/03: eucerin for dry feet, ashwin patch for nicotine dep, abilify 5 mg daily for psychosis. pt has reportedly been improved on abilify, dose unknown. 08/04:? disorganized behavior, lying naked on the floor all night and then on bathroom floor today.? increase abilify to 10 mg daily. 08/05: dressed, lying on a bed today. evasive and terse. vague. anxious, uncomfortable. states she believes she does not have a mental illness and does not need to take medication. commitment paperwork completed. 08/06 continue tx. 08/07 continue tx. 08/08: came out of room for interview. no unsafe behaviors over weekend, but bizarre staring for long periods, isolative. declines to take medications, say ing only, i'll be fine as MD expresses concern and encourages her to take them. guilt over bothering everybody. 08/09: refusing meds. minimally verbal, sometimes selectively mute with staff. pacing and staring behaviors. eating and appears to be sleeping. Reason for continued inpatient stay Substantial Risk for: harm to self, inability to function and rapid decompensation Time Spent With Patient Time: Total time managing care of this patient today ____ minutes.
[2022-08-09] MEDS: Nicotine 21 MG PATCH.TD24 TRANSDERMA (16:15)
[2022-08-09 20:15] VITALS: RESP 16
[2022-08-10] MEDS: Nicotine 21 MG PATCH.TD24 TRANSDERMA (08:34)
--- NOTE | 2022-08-10 13:10 | P.PNPSI_ITS ---
Subjective Subjective Date of Service: 08/10/22 Reason For Visit: Depression pyschosis Interim History: lying in bed covered to her neck in blanket. MD informs her he has come to check in on her and see how she is doing. she suddenly bursts into tears and says nothing. after a few moments, MD acknowledges the tears and asks if anything is the matter she might like to talk about. she responds, everybody is beautiful. after several more moments of crying she adds, i wish they ne david let me live. MD asks who they are. she responds, everybody. crying slows somewhat, pt apologizes, i'm sorry i don't want to bother you. after several more exchanges, it is clear pt does not wish to speak any longer to MD, MD exits. per staff, isolative. refusing medications and VS. i'm fine. then says she has 5/10 dep/anx. appears to be RIS. slept about 8 hours. Mental Status Exam Mental Status Exam Narrative: tearful, calm and partially cooperative. tucked under blankets to neck. no PMA/PMR. speech nml rate, decr amount. incr latency, flattened prosody. thoughts: terse responses, apparent delusional guilt. affect constricted, normo-intense, min-labile. no SI/SIBI/HI/AVH expressed. Diagnostics Vital Signs (24Hr): Vital Signs - 24 hr 08/09/22 20:15 Respiratory Rate 16 BMI result Body Mass Index 28.3 Labs 08/02/22 14:16 08/03/22 08:41 Medications Medications Current Medications Acetaminophen (Acetaminophen 325 Mg Tablet) 650 mg PO Q6H PRN PRN Reason: Headache/Pain Mild Scale (1-3) Last Admin: 08/03/22 16:47 Dose: 325 mg Al Hydroxide/Mg Hydroxide (Magnesium Hydrox/Alum Hydrox 30 Ml Oral.Susp) 30 ml PO Q6H PRN PRN Reason: Heartburn/Nausea Aripiprazole (Aripiprazole 10 Mg Tablet) 10 mg PO DAILY STEVE Last Admin: 08/10/22 08:08 Dose: Not Given Hydroxyzine HCl (Hydroxyzine Hcl 25 Mg Tablet) 25 mg PO Q6H PRN PRN Reason: Anxiety Last Admin: 08/02/22 23:56 Dose: 25 mg Magnesium Hydroxide (Milk Of Magnesia 30 Ml Oral.Susp) 30 ml PO DAILY PRN PRN Reason: Constipation Multi-Ingred Cream/Lotion/Oil/Oint (Mineral Oil/Petrolatum,White 106 Gm Tube) 1 appl TOPICAL BID STEVE; Protocol Last Admin: 08/10/22 08:09 Dose: Not Given Nicotine (Nicotine 21 Mg Patch.Td24) 21 mg TRANSDERMA DAILY STEVE Last Admin: 08/10/22 08:34 Dose: 21 mg Trazodone HCl (Trazodone Hcl 50 Mg Tablet) 50 mg PO BEDTIME MRX1 PRN PRN Reason: Insomnia Allergies Allergies Allergy/AdvReac Type Severity Reaction Status Date / Time No Known Allergies Allergy Unverified 11/14/19 16:42 Assessment & Plan Assessment & Plan (1) Psychotic disorder with delusions: Status: Acute Code(s): F29 - Unspecified psychosis not due to a substance or known physiological condition Plan 08/03: eucerin for dry feet, ashwin patch for nicotine dep, abilify 5 mg daily for psychosis. pt has reportedly been improved on abilify, dose unknown. 08/04:? disorganized behavior, lying naked on the floor all night and then on bathroom floor today.? increase abilify to 10 mg daily. 08/05: dressed, lying on a bed today. evasive and terse. vague. anxious, uncomfortable. states she believes she does not have a mental illness and does not need to take medication. commitment paperwork completed. 08/06 continue tx. 08/07 continue tx. 08/08: came out of room for interview. no unsafe behaviors over weekend, but bizarre staring for long periods, isolative. declines to take medications, saying only, i'll be fine as MD expresses concern and encourages her to take them. guilt over bothering everybody. 08/09: refusing meds. minimally verbal, sometimes selectively mute with staff. pacing and staring behaviors. eating and appears to be sleeping. 08/10: not forthcoming in general. labile, delusional guilt. apparent thought disorganization. hearing tomorrow. Reason for continued inpatient stay Substantial Risk for: harm to self, inability to function and rapid decompensation Time Spent With Patient Time: Total time managing care of this patient today __25__ minutes.
[2022-08-10 18:00] VITALS: RESP 18
[2022-08-11 09:44] VITALS: RESP 18
[2022-08-11 14:26] VITALS: BMI 25.8
--- NOTE | 2022-08-11 15:49 | HO.PSYCHPN ---
Subjective Subjective Date of Service: 08/11/22 Reason For Visit: Depression pyschosis Interim History: seated on edge of bed, eating pudding. calm, cooperative. no spontaneous speech. MD explains hearing process for this afternoon. pt has no questions or concerns for MD. per staff, isolative. staring at ceiling and sleeping. denies SI/HI/AVH. refusing VS and meds. appears to sleep but difficult to say. Mental Status Exam Mental Status Exam Narrative: calm and partially cooperative. seated on edge of bed eating pudding. no PMA/PMR. speech nml rate, decr amount. incr latency, flattened prosody. thoughts: terse responses, apparent delusional guilt. affect constricted, normo-intense, non-labile. no SI/SIBI/HI/AVH expressed. Diagnostics Vital Signs (24Hr): Vital Signs - 24 hr 08/10/22 18:00 08/11/22 09:44 Respiratory Rate 18 18 BMI result Body Mass Index 25.8 Labs 08/02/22 14:16 08/03/22 08:41 Medications Medications Current Medications Acetaminophen (Acetaminophen 325 Mg Tablet) 650 mg PO Q6H PRN PRN Reason: Headache/Pain Mild Scale (1-3) Last Admin: 08/03/22 16:47 Dose: 325 mg Al Hydroxide/Mg Hydroxide (Magnesium Hydrox/Alum Hydrox 30 Ml Oral.Susp) 30 ml PO Q6H PRN PRN Reason: Heartburn/Nausea Aripiprazole (Aripiprazole 10 Mg Tablet) 10 mg PO DAILY STEVE Last Admin: 08/11/22 10:15 Dose: Not Given Hydroxyzine HCl (Hydroxyzine Hcl 25 Mg Tablet) 25 mg PO Q6H PRN PRN Reason: Anxiety Last Admin: 08/02/22 23:56 Dose: 25 mg Magnesium Hydroxide (Milk Of Magnesia 30 Ml Oral.Susp) 30 ml PO DAILY PRN PRN Reason: Constipation Multi-Ingred Cream/Lotion/Oil/Oint (Mineral Oil/Petrolatum,White 106 Gm Tube) 1 appl TOPICAL BID STEVE; Protocol Last Admin: 08/11/22 10:16 Dose: Not Given Nicotine (Nicotine 21 Mg Patch.Td24) 21 mg TRANSDERMA DAILY [facility] Last Admin: 08/11/22 10:16 Dose: Not Given Trazodone HCl (Trazodone Hcl 50 Mg Tablet) 50 mg PO BEDTIME MRX1 PRN PRN Reason: Insomnia Allergies Allergies Allergy/AdvReac Type Severity Reaction Status Date / Time No Known Allergies Allergy Unverified 11/14/19 16:42 Assessment & Plan Assessment & Plan (1) Psychotic disorder with delusions: Status: Acute Code(s): F29 - Unspecified psychosis not due to a substance or known physiological condition Plan 08/03: eucerin for dry feet, ashwin patch for nicotine dep, abilify 5 mg daily for psychosis. pt has reportedly been improved on abilify, dose unknown. 08/04:? disorganized behavior, lying naked on the floor all night and then on bathroom floor today.? increase abilify to 10 mg daily. 08/05: dressed, lying on a bed today. evasive and terse. vague. anxious, uncomfortable. states she believes she does not have a mental illness and does not need to take medication. commitment paperwork completed. 08/06 continue tx. 08/07 continue tx. 08/08: came out of room for interview. no unsafe behaviors over weekend, but bizarre staring for long periods, isolative. declines to take medications, saying only, i'll be fine as MD expresses concern and encourages her to take them. guilt over bothering everybody. 08/09: refusing meds. minimally verbal, sometimes selectively mute with staff. pacing and staring behaviors. eating and appears to be sleeping. 08/10: not forthcoming in general. labile, delusional guilt. apparent thought disorganization. hearing tomorrow. 08/11: hearing today, decision will not be handed down until tomorrow. more up and about and visible today, remains very terse and reticent to engage. Reason for continued inpatient stay Substantial Risk for: inability to function Time Spent With Patient Time: Total time managing care of this patient today _120___ minutes.
[2022-08-11 21:50] VITALS: RESP 18
[2022-08-12] MEDS: Nicotine 21 MG PATCH.TD24 TRANSDERMA (08:57)
--- NOTE | 2022-08-12 14:40 | HO.PSYCHPN ---
Subjective Subjective Date of Service: 08/12/22 Reason For Visit: Depression pyschosis Interim History: no change in presentation. Diagnostics Vital Signs (24Hr): Vital Signs - 24 hr 08/11/22 21:50 Respiratory Rate 18 BMI result Body Mass Index 25.8 Labs 08/02/22 14:16 08/03/22 08:41 Medications Medications Current Medications Acetaminophen (Acetaminophen 325 Mg Tablet) 650 mg PO Q6H PRN PRN Reason: Headache/Pain Mild Scale (1-3) Last Admin: 08/03/22 16:47 Dose: 325 mg Al Hydroxide/Mg Hydroxide (Magnesium Hydrox/Alum Hydrox 30 Ml Oral.Susp) 30 ml PO Q6H PRN PRN Reason: Heartburn/Nausea Aripiprazole (Aripiprazole 10 Mg Tablet) 10 mg PO DAILY [facility] Last Admin: 08/12/22 09:04 Dose: Not Given Hydroxyzine HCl (Hydroxyzine Hcl 25 Mg Tablet) 25 mg PO Q6H PRN PRN Reason: Anxiety Last Admin: 08/02/22 23:56 Dose: 25 mg Magnesium Hydroxide (Milk Of Magnesia 30 Ml Oral.Susp) 30 ml PO DAILY PRN PRN Reason: Constipation Multi-Ingred Cream/Lotion/Oil/Oint (Mineral Oil/Petrolatum,White 106 Gm Tube) 1 appl TOPICAL BID [facility]; Protocol Last Admin: 08/12/22 09:04 Dose: Not Given Nicotine (Nicotine 21 Mg Patch.Td24) 21 mg TRANSDERMA DAILY [facility] Last Admin: 08/12/22 08:57 Dose: 21 mg Trazodone HCl (Trazodone Hcl 50 Mg Tablet) 50 mg PO BEDTIME MRX1 PRN PRN Reason: Insomnia Allergies Allergies Allergy/AdvReac Type Severity Reaction Status Date / Time No Known Allergies Allergy Unverified 11/14/19 16:42 Assessment & Plan Assessment & Plan (1) Psychotic disorder with delusions: Status: Acute Code(s): F29 - Unspecified psychosis not due to a substance or known physiological condition Plan 08/03: eucerin for dry feet, ashwin patch for nicotine dep, abilify 5 mg daily for psychosis. pt has reportedly been improved on abilify, dose unknown. 08/04:? disorganized behavior, lying naked on the floor all night and then on bathroom floor today.? increase abilify to 10 mg daily. 08/05: dressed, lying on a bed today. evasive and terse. vague. anxious, uncomfortable. states she believes she does not have a mental illness and does not need to take medication. commitment paperwork completed. 08/06 continue tx. 08/07 continue tx. 08/08: came out of room for interview. no unsafe behaviors over weekend, but bizarre staring for long periods, isolative. declines to take medications, saying only, i'll be fine as MD expresses concern and encourages her to take them. guilt over bothering everybody. 08/09: refusing meds. minimally verbal, sometimes selectively mute with staff. pacing and staring behaviors. eating and appears to be sleeping. 08/10: not forthcoming in general. labile, delusional guilt. apparent thought disorganization. hearing tomorrow. 08/11: hearing today, decision will not be handed down until tomorrow. more up and about and visible today, remains very terse and reticent to engage. Time Spent With Patient Time: Total time managing care of this patient today ____ minutes.
--- NOTE | 2022-08-12 14:43 | P.DS_ITS ---
DS: Providers Provider Date of Service: 08/12/22 Date of admission: 08/02/22 22:48 Primary care physician: None Physician DS: Diagnosis Discharge Diagnosis (1) Psychotic disorder with delusions: Status: Acute DS: Medications Discharge Medications Home Medications: Home Medications Medication Instructions Recorded Confirmed lorazepam 0.5 mg tablet 0.5 mg PO TID PRN anxiety 08/02/22 08/02/22 trazodone 50 mg tablet 25 mg PO BEDTIME PRN insomnia 08/02/22 08/02/22 Mental Status Exam Mental Status Exam Narrative: calm and partially cooperative. lying in bed, supine, in her maroon sweatsuit. no PMA/PMR. speech nml rate, decr amount, decr loudness. incr latency, flattened prosody. thoughts: terse responses. affect constricted, normo- intense, non-labile. no SI/SIBI/HI/AVH expressed. DS: Summary Hospital Course Hospital Course: per 08/03 admission note: pt [place] [address] [place] police were called with complaint pt was not caring for herself and had been isolating herself since the passing of her mother. ? she reportedly has not been bathing or eating or sleeping substantially, as well as becoming increasingly delusional ? re being deported to [place] and shot in her neck. ? she had always lived with and been cared for b y her mother until last January, when her mother . calm, cooperative.? somewhat disorganized and tangential, seeming to be talking through how she might have gotten into the hospital, who might have called, says she maybe had greasy hair and had not showered and the neighbor saw her putting out the trash... maybe she was the one who called the police... maybe not.? discussed people leaving notes on her car, like isac pretty notes, which she initially said made her believe that she had been charged with or convicted of a crime, but she was unable to describe the content of the notes that made her believe that.? later she said she presence of the notes made her believe she was going to be deported to [place].? claims she never said anything about being shot.? much of rambling interview spent with pt very anxiously asking questions about law, due process, immigration, etc.? paranoid delusion she has been charged with some crime she has not been informed of and perhaps was [place] of said crime [place] and may be imminently deported to [place].? acknowledges she has been on abilify in the past and been helped by it, reluctantly agrees to restart it here. Past Psychiatric History: psych hosps:? more than 2.? 2015 and earlier.? reprots they were 2/2 breakups with her former boyfriend. SA:? denies SIB:? denies outpt: reports has zoom therapy with chastity ricci at [facility], none in several weeks, though. also has prescriber at [facility], [facility] later acknowledges she has been prescribed abilify as well, which allowed her to feel more easy-going. Medical Evaluation Reviewed: Yes PMFSH Narrative: denies medical problems Family History: denies Social History: lives in own [facility] in [place], which was left to her by her mother when her mother February 22, 2022.? she was living there with her mother at the time of her mother's passing.? 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 Substance History: tob:? cigs < 1 ppd alcohol: denies cannabis: denies other: denies Trauma History: denies Precis: 08/03:? eucerin for dry feet, ashwin patch for nicotine dep, abilify 5 mg daily for psychosis.? pt has reportedly been improved on abilify, dose unknown. 08/04:? disorganized behavior, lying naked on the floor all night and then on bathroom floor today.? increase abilify to 10 mg daily. 08/05:? dressed, lying on a bed today.? evasive and terse.? vague.? anxious, uncomfortable.? states she believes she does not have a mental illness and does not need to take medication.? commitment paperwork completed. 08/06 continue tx. 08/07 continue tx. 08/08:? came out of room for interview.? no unsafe behaviors over weekend, but bizarre staring for long periods, isolative.? declines to take medications, saying only, i'll be fine as expresses concern and encourages her to take them.? guilt over bothering everybody. 08/09:? refusing meds.? minimally verbal, sometimes selectively mute with staff.? pacing and staring behaviors.? eating and appears to be sleeping. 08/10:? not forthcoming in general.? labile, delusional guilt.? apparent thought disorganization.? hearing tomorrow. 08/11:? hearing today, decision will not be handed down until tomorrow.? more up and about and visible today, remains very terse and reticent to engage. 08/12: court decision in favor of discharge rather than commitment. aftercare in place, SW arranging for transportation. discharge this afternoon. no change in presentation. Time Spent with Patient Time attestation: Total time managing care of this patient today ____ minutes. Time spent: Greater than 30 minutes Discharge Plan Discharge Anticipated Discharge Date/Time: 08/12/22 14:48 Patient Disposition: Home, Self-Care Discharge Diagnosis: Psychotic Disorder NOS Referrals: Therapy & Psychiatry - Natividad Olivo [Other] - 08/19/22 11:00 am (You have been referred to [facility] for therapy, psychiatry and case management. Once you attend this intake appointment, you will then be set up with further follow up with your providers) Physician,None [Primary Care Provider] - 1 Week Discharge Medications: Discontinued trazodone 50 mg tablet 25 mg PO BEDTIME PRN (Reason: insomnia) lorazepam 0.5 mg tablet 0.5 mg PO TID PRN (Reason: anxiety) Discharge Orders: Discharge Order (Routine); Ordered 08/12/22 Ordered By: Hung Mullins Diet: Advance to usual diet Activity on Discharge: As tolerated Stand Alone Forms: Patient Portal Discharge page Care Plan Goals: achieve remission of depression and resolution of psychotic symptoms Health Concerns: none Plan of Treatment: follow up with your outpatient mental health appointments and engage in therapy and medications management. Assessment: ordered discharged by the court
--- NOTE | 2022-08-12 15:13 | PC.NURSE ---
Reviewed discharge information with pt. Pt appeared withdrawn and made minimal eye contact. Pt appeared confused when she was told she was leaving and said I thought I was staying another week. RN and home health care social worker explained to pt that the court decided she would be going home today but if she doesn't feel safe she can call 911 or the crisis line at anytime. Pt verbalized understanding. Pt is not prescribed any medications. Pt denies SI/HI/AH/VH.
== END 2022-08-12 15:30 | disposition home or self-care (01) | DRG 751 ==
LOC: HO.ED 21:28 → HO.PADLT16 22:54
PROVIDERS: Admitting Provider Psychiatry & Neurology Psychiatry; Emergency Provider Student in an Organized Health Care Education/Training Program; Visit Provider Psychiatry & Neurology Psychiatry
DX: F29 Unspecified psychosis not due to a substance or known physiological condition (principal); F17.210 Nicotine dependence, cigarettes, uncomplicated; Z71.6 Tobacco abuse counseling
CPT/HCPCS: 36415; 80048; 80053; 80061; 80076; 80307; 82607; 82746; 83690; 84443; 85025; 93005; 99285; S9485

== ENCOUNTER 2022-08-27 23:32 | Inpatient (IN) | payer OTHER, SELFPAY ==
[2022-08-27 23:41] VITALS: BP 118/82; PULSE 115; RESP 16; TEMP 36.8; O2SAT 97; BMI 22.8
--- NOTE | 2022-08-28 00:31 | ED.PSYCH ---
HPI - Psych General Chief Complaint: Psychiatric Symptoms Stated Complaint: crisis Time Seen by Provider: 08/27/22 23:46 Source: patient Limitations: no limitations History of Present Illness HPI Narrative: 52-year-old female with reported history of depression presents with suicidal ideation. She offers no plan. Symptoms seem to have been progressively getting worse. She is supposed to be taking Abilify but is only intermittently taking it. She denies any clear relieving or exacerbating features. She denies any new stressors. She does associate some of her symptoms with anxiety and stress. Patient denies any alcohol or drug abuse. Patient describes her symptoms as severe. Patient has previously been admitted for psychiatric reasons. Related Data Home Medications Medication Instructions Recorded Confirmed No Known Home Meds 08/27/22 08/27/22 Allergies Allergy/AdvReac Type Severity Reaction Status Date / Time No Known Allergies Allergy Unverified 11/14/19 16:42 Review of Systems Review of Systems: CONSTITUTIONAL: Denies weight loss, fever and chills. HEENT: Denies changes in vision and hearing. RESPIRATORY: Denies SOB and cough. CV: Denies palpitations no CP. GI: Denies abdominal pain, nausea, vomiting and diarrhea. : Denies dysuria and urinary frequency. MSK: Denies myalgia and joint pain. SKIN: Denies rash and pruritus. NEUROLOGICAL: Denies headache and syncope. PSYCHIATRIC: See HPI, no hallucination All other ROS are negative unless in HPI [facility] Social History Social History Household Members: None Housing: House Do you presently have visiting nurse or other home services: No Patient Tobacco Use Status: Never used Tobacco e-Cigarette/Vaping Use: Never Used Second Hand Smoke Exposure: No Advance Directives: No Advance Directives Information Provided: No service: No Sexual orientation: Straight/Heterosexual Physical Exam Vital Signs: Vital Signs: Last Vital Signs Temp 98.2 F 08/27/22 23:41 Pulse 115 H 08/27/22 23:41 Resp 16 08/27/22 23:41 BP 118/82 08/27/22 23:41 Pulse Ox 97 08/27/22 23:41 O2 Del Method Room Air 08/27/22 23:41 BMI result Body Mass Index 22.8 GEN: Well developed, no acute distress, alert, oriented HEENT: Normocephalic, atraumatic, normal external ears, nose appears normal, no oropharyngeal edema or exudates Eyes: Normal to appearance Neck: Supple, no lymphadenopathy Respiratory: Talks in complete sentences, no respiratory distress, clear to auscultation bilaterally Cardiovascular: Regular rate and rhythm, no murmurs rubs or gallops Abdomen: Soft, nontender, nondistended, no guarding, no rebound Back: No CVA tenderness Extremities: No clubbing cyanosis or edema Neurologic: No focal neurologic deficits, cranial nerves 2-12 intact, strength is 5/5 bilaterally Skin: No rash Course Course Course Narrative: Patient is here for psychiatric evaluation given possible suicidal ideation and substance abuse. She is medically clear for psychiatric evaluation. Her disposition is pending care team. Will admit the patient to physician observation. Reevaluation(s) Reevaluation #1: Patient will be signed out to the oncoming provider at 7:00 a.m. this morning Time: 07:00 Medical Decision Making Medical Decision Making [facility] Narrative: 52-year-old female with previous psychiatric history presents with suicidal ideation with no plan. She reports history of depression and previous psychiatric admissions. Patient denies any drug or alcohol abuse. Her examination is otherwise benign. Differential diagnosis includes anxiety, depression, suicidality, personality disorder, adjustment reaction, mood disorder. Patient will require medical clearance which will include laboratory analysis. She will be observed for progressive or improve symptoms. Patient will require Behavioral Health evaluation. Patient is hoping for admission. Differential Diagnosis Differential Diagnoses: The differential diagnosis associated with the presentation includes (See above) Admission/Observation Consideration of admission/observation: Escalation of care including admission/observation considered Consult Healthcare Provider Management of the patient was discussed with: Behavioral Health Provider Lab Data [facility] Lab Attestation statement: I reviewed the patient's lab results. 08/28/22 00:35 08/28/22 00:35 Labs: Lab Results 08/28/22 08/28/22 08/28/22 Range/Units 00:35 00:35 00:35 WBC 10.6 (4.8-10.8) X10*3/uL RBC 4.28 (4.20-5.50) X10*6/uL Hgb 13.2 (12.0-16.0) g/dl Hct 39.1 (37.0-47.0) % MCV 91.4 (80.0-98.0) fL MCH 30.8 (27.0-33.0) pg MCHC 33.8 (31.0-35.0) g/dl RDW 12.4 (11.0-16.0) % Plt Count 373 (160-400) X10*3/uL MPV 10.6 (9.4-12.3) fL Immature Gran % (Auto) 0.4 (0.0-0.4) % Neut % (Auto) 77.5 H (45-73) % Lymph % (Auto) 14.6 L (20-40) % [place] % (Auto) 6.7 (2-11) % Eos % (Auto) 0.4 (0-4) % Baso % (Auto) 0.4 (0-2) % Lymph # (Auto) 1.6 (1.2-4.9) X10*3/uL [place] # (Auto) 0.7 (0.1-1.2) X10*3/uL Eos # (Auto) 0.0 (0.0-0.4) X10*3/uL Baso # (Auto) 0.0 (0.0-0.2) X10*3/uL Abs Immat Gran (auto) 0.04 H (0.00-0.03) X10*3/uL Absolute Neuts (auto) 8.2 (2.0-8.3) x10*3/uL Absolute Nucleated RBC 0.000 (0.0-0.012) X10*3/uL Nucleated RBC % (auto) 0.0 (0.0-0.2) /100WBC Sodium 140 (135-145) mmol/L Potassium 3.8 (3.3-5.1) mmol/L Chloride 104 (96-108) mmol/L Carbon Dioxide 26 (22-29) mmol/L Anion Gap 14 (12-20) BUN 18 H (9-16) mg/dL Creatinine 0.82 (0.5-1.4) mg/dL Estim Creat Clear Calc 81.9 Estimated GFR > 60 Random Glucose 109 (60-115) mg/dL Calcium 9.9 (8.4-10.2) mg/dL Total Bilirubin 1.8 H (0.0-1.0) mg/dL AST 14 (5-31) U/L ALT 15 (0-31) U/L Alkaline Phosphatase 88 (39-117) U/L Total Protein 7.2 (6.5-8.0) g/dL Albumin 4.0 (3.5-5.0) g/dL Urine Color Urine Appearance Urine pH (5.0-9.0) Ur Specific [place] (1.005-1.025) Urine Protein (Neg-Trace) mg/dL Urine Glucose (UA) (Negative) mg/dL Urine Ketones (Negative) mg/dL Urine Blood (Negative) Urine Nitrite (Negative) Ur Leukocyte Esterase (Negative) Urine RBC (0-2) /HPF Urine WBC (0-5) /HPF Ur Squamous Epith Cells (0-2) /HPF Calcium Oxalate Crystal Urine Bacteria (None Seen) Hyaline Casts (0-2) /LPF Urine Opiates Screen Not Detected (Not Detect) Urine Fentanyl Screen Not Detected (Not Detect) Ur Barbiturates Screen Not Detected (Not Detect) Ur Phencyclidine Scrn Not Detected (Not Detect) Ur Amphetamines Screen Not Detected (Not Detect) U Benzodiazepines Scrn Not Detected (Not Detect) Urine Cocaine Screen Not Detected (Not Detect) U Marijuana (THC) Screen Not Detected (Not Detect) Ethyl Alcohol < 10 mg/dL 08/28/22 Range/Units 00:35 WBC (4.8-10.8) X10*3/uL RBC (4.20-5.50) X10*6/uL Hgb (12.0-16.0) g/dl Hct (37.0-47.0) % MCV (80.0-98.0) fL MCH (27.0-33.0) pg MCHC (31.0-35.0) g/dl RDW (11.0-16.0) % Plt Count (160-400) X10*3/uL MPV (9.4-12.3) fL Immature Gran % (Auto) (0.0-0.4) % Neut % (Auto) (45-73) % Lymph % (Auto) (20-40) % [place] % (Auto) (2-11) % Eos % (Auto) (0-4) % Baso % (Auto) (0-2) % Lymph # (Auto) (1.2-4.9) X10*3/uL [place] # (Auto) (0.1-1.2) X10*3/uL Eos # (Auto) (0.0-0.4) X10*3/uL Baso # (Auto) (0.0-0.2) X10*3/uL Abs Immat Gran (auto) (0.00-0.03) X10*3/uL Absolute Neuts (auto) (2.0-8.3) x10*3/uL Absolute Nucleated RBC (0.0-0.012) X10*3/uL Nucleated RBC % (auto) (0.0-0.2) /100WBC Sodium (135-145) mmol/L Potassium (3.3-5.1) mmol/L Chloride (96-108) mmol/L Carbon Dioxide (22-29) mmol/L Anion Gap (12-20) BUN (9-16) mg/dL Creatinine (0.5-1.4) mg/dL Estim Creat Clear Calc Estimated GFR Random Glucose (60-115) mg/dL Calcium (8.4-10.2) mg/dL Total Bilirubin (0.0-1.0) mg/dL AST (5-31) U/L ALT (0-31) U/L Alkaline Phosphatase (39-117) U/L Total Protein (6.5-8.0) g/dL Albumin (3.5-5.0) g/dL Urine Color Dark Yellow Urine Appearance Turbid Urine pH 5.5 (5.0-9.0) Ur Specific [place] >= 1.030 H (1.005-1.025) Urine Protein 30 (1+) H (Neg-Trace) mg/dL Urine Glucose (UA) Negative (Negative) mg/dL Urine Ketones Trace (Negative) mg/dL Urine Blood Negative (Negative) Urine Nitrite Negative (Negative) Ur Leukocyte Esterase Small (1+) H (Negative) Urine RBC 6-10 H (0-2) /HPF Urine WBC 6-10 (0-5) /HPF Ur Squamous Epith Cells >20 (0-2) /HPF Calcium Oxalate Crystal Present Urine Bacteria 3+ (None Seen) Hyaline Casts 11-20 (0-2) /LPF Urine Opiates Screen (Not Detect) Urine Fentanyl Screen (Not Detect) Ur Barbiturates Screen (Not Detect) Ur Phencyclidine Scrn (Not Detect) Ur Amphetamines Screen (Not Detect) U Benzodiazepines Scrn (Not Detect) Urine Cocaine Screen (Not Detect) U Marijuana (THC) Screen (Not Detect) Ethyl Alcohol mg/dL Independent Historian Clinical information obtained from an independent historian. History obtained from or confirmed by: EMS External Record Review External record reviewed: Inpatient record (Discharge summary 08/12/2022) Chronic Conditions Patient?s care impacted by: Other (Psychiatric history) Discharge Plan Discharge Clinical Impression: Depression Patient Disposition: Still a Patient Prescriptions: No Action No Known Home Meds Interventions: Echo-Suicide Risk Severity Scale Last Done: 08/27/22 23:50
[2022-08-28 00:45] LABS: MANUAL DIFF FLAG NO
[2022-08-28 00:48] LABS: Appearance Urine Turbid; Color Urine Dark Yellow; Glucose Urine UA Negative (Negative); Leukocyte Esterase Urine Small (1+) (Negative); Nitrite Urine Negative (Negative); PH 5.5 (5.0-9.0); Specific Gravity - Urine >= 1.030 (1.005-1.025); UMIC TRIGGER UA YES; Urine Blood Negative (Negative); Urine Ketones Trace mg/dL (Negative); Urine Protein 30 (1+) mg/dL (Neg-Trace)
[2022-08-28 00:50] LABS: Basophils Percent Auto 0.4 % (0-2); Eosinophils Percent Auto 0.4 % (0-4); Hematocrit 39.1 % (37.0-47.0); Hemoglobin 13.2 g/dl (12.0-16.0); Imm Gran Abs Auto 0.04 X10*3/uL (0.00-0.03); Imm Gran Pct Auto 0.4 % (0.0-0.4); Lymphocytes Absolute Auto 1.6 X10*3/uL (1.2-4.9); Lymphocytes Percent Auto 14.6 % (20-40); Mean Corpuscular HGB Conc 33.8 g/dl (31.0-35.0); Mean Corpuscular Hemoglobin 30.8 pg (27.0-33.0); Mean Corpuscular Volume 91.4 fL (80.0-98.0); Mean Platelet Volume 10.6 fL (9.4-12.3); Monocytes Absolute Auto 0.7 X10*3/uL (0.1-1.2); Monocytes Percent Auto 6.7 % (2-11); Neutrophils Absolute Auto 8.2 x10*3/uL (2.0-8.3); Neutrophils Percent Auto 77.5 % (45-73); Platelet Count 373 X10*3/uL (160-400); Red Blood Count 4.28 X10*6/uL (4.20-5.50); Red Cell Distribution Width 12.4 % (11.0-16.0); White Blood Count 10.6 X10*3/uL (4.8-10.8)
[2022-08-28 00:59] LABS: Bacteria Urine 3+ (None Seen); Calcium Oxalate Crystals Urine Present; Squamous Epithelial Cell Urine >20 /HPF (0-2)
[2022-08-28 01:10] LABS: Alanine Aminotransferase 15 U/L (0-31); Alkaline Phosphatase 88 U/L (39-117); Amphetamine Screen Urine Not Detected (Not Detect); Anion Gap 14 (12-20); Aspartate Amino Transferase 14 U/L (5-31); Barbiturates, Urine Not Detected (Not Detect); Benzodiazepines Screen Urine Not Detected (Not Detect); Bilirubin Total 1.8 mg/dL (0.0-1.0); Blood Urea Nitrogen 18 mg/dL (9-16); Calcium 9.9 mg/dL (8.4-10.2); Cannabinoid Screen Urine Not Detected (Not Detect); Carbon Dioxide 26 mmol/L (22-29); Chloride 104 mmol/L (96-108); Cocaine Screen Urine Not Detected (Not Detect); Creatinine Clr Calc Pharmacy 81.9; Estimated Glomerular Filt Rate > 60; Ethanol < 10 mg/dL; Fentanyl, urine Not Detected (Not Detect); Glucose Random 109 mg/dL (60-115); Opiate Screen Urine Not Detected (Not Detect); Phencyclidine Screen Urine Not Detected (Not Detect); Potassium 3.8 mmol/L (3.3-5.1); Sodium 140 mmol/L (135-145); Total Protein 7.2 g/dL (6.5-8.0)
--- NOTE | 2022-08-28 05:06 | PC.NURSE ---
Patient slept most part of the night, no distress observed/reported, behavior non concerning, care consult ordered for suicidality, pending evaluation in the morning, med rec reviewed patient is currently no on any medication, labs completed/resulted, VSS, will continue to monitor.
--- NOTE | 2022-08-28 09:54 | PC.NURSE ---
pt has been in room most of the morning, came out briefly to ask about time of CARE eval, eval by CARE team done and plan for bed search,
--- NOTE | 2022-08-28 15:26 | PC.NURSE ---
pt nicotine patch applied right upper arm. pt repeatedly is asking to leave and requests to check themselves out
[2022-08-28 20:15] VITALS: BP 115/68; PULSE 79; RESP 18; TEMP 36.3; O2SAT 96
[2022-08-29 01:59] VITALS: BP 120/88; PULSE 114; RESP 18; TEMP 36.4; O2SAT 96
--- NOTE | 2022-08-29 06:34 | PC.NURSE ---
Patient slept through the night, no distress observed/reported, behavior non concerning, Labs completed/resulted, patient is not on any home medication at this time, disposition per care team is section 12 inpatient bed search, VSS, will continue to monitor.
--- NOTE | 2022-08-29 07:56 | PC.NURSE ---
pt refusing EKG at this time.
[2022-08-29 08:46] VITALS: BP 135/80; PULSE 98; RESP 18; TEMP 36.9; O2SAT 96
--- NOTE | 2022-08-29 10:55 | PC.NURSE ---
pt requesting to leave informed that she has to speak with the CARE team regarding her plan as she may be admitted. pt continues to approach nurses station requesting when she can leave, re-oriented to the plan of care. pt walked down to the double doors and attempted to push on the doors before returning to her room. pt presents as flightly, requires constant redirection and orientation.
--- NOTE | 2022-08-29 11:07 | PC.NURSE ---
pt out of bed, ? praying against wall between bed and desk. then pt placed her pillow on the floor and is now laying face down on the floor
--- NOTE | 2022-08-29 15:58 | PC.NURSE ---
during interaction with pt assessing [place] and safety, pt guarded, appears to be responding to internal stimuli, refusing to uncover her face below the nose. pt affect bizarre, repeating the safe questions. interested in leaving tonight though she was already informed she will be going inpatient. pt has been very thankful for minimal needs met. easily redirectable and accepting of information.
--- NOTE | 2022-08-29 17:21 | PC.ADMIT ---
Cordelia was admitted to at 14:40 from the POD on CV for treatment of unspecified psychosis. Per crisis eval, Precipitants of admission include being found lying on a bridge after driving herself to the bridge with the intent to jump in a suicide attempt.? Patient declined to participate in the admission assessment. Admission assessment was based of information in crisis assessment. Cordelia is alert and oriented x3, remains with poor insight. Patient was recently discharged from on 08/12/2022. Mood is depressed. Affect appears to be flat. Per POD nurse patient is expressing some paranoia. In the ED patient was observed to be responding to internal stimuli as well. Unable to assess thought process due to patient refusing to participate in admission assessment.? Patient denies SI/HI/AH/VH at this time. Reports that sleep and appetite are ?fine? at this time.? TOVAR is negative, covid is negative. No acute medical or physical complaints at this time.? At this time crisis assessment reports that the patient has not been medication compliant, nor has she been able to care for herself.?
[2022-08-29 17:23] VITALS: BP 120/76; PULSE 96; RESP 18; TEMP 36.8; O2SAT 96
[2022-08-29 21:28] VITALS: BP 120/67; PULSE 84; RESP 18; TEMP 36.6; O2SAT 99
--- NOTE | 2022-08-29 21:32 | PC.NURSE ---
Cordelia is noted to be isolating in her room. she denies depression and anxiety, suicidal/homicidal ideation auditory/visual hallucinations. she has poor eye contact and a flat affect. no behavioral concerns, stated last BM on Monday. denies constipation. monitor for safety, continue Plan of Care
[2022-08-30 07:48] LABS: Alanine Aminotransferase 19 U/L (0-31); Alkaline Phosphatase 88 U/L (39-117); Anion Gap 14 (12-20); Aspartate Amino Transferase 17 U/L (5-31); Blood Urea Nitrogen 20 mg/dL (9-16); Calcium 9.8 mg/dL (8.4-10.2); Carbon Dioxide 26 mmol/L (22-29); Chloride 105 mmol/L (96-108); Cholesterol 121 mg/dL; Creatinine Clr Calc Pharmacy 94.5; Estimated Glomerular Filt Rate > 60; Glucose Fasting 90 mg/dL (60-99); HDL Cholesterol 32 mg/dL; LDL Cholesterol Calculated 75 mg/dl; Potassium 4.3 mmol/L (3.3-5.1); Sodium 141 mmol/L (135-145); Total Protein 7.3 g/dL (6.5-8.0); Triglycerides 73 mg/dL
[2022-08-30 09:30] VITALS: RESP 18
--- NOTE | 2022-08-30 15:13 | HO.PSYADMNOT ---
HPI Date of Service: 08/30/22 Chief Complaint: SI Sources of Information: patient interviewed, chart reviewed and crisis/core team assessment reviewed HPI Subjective Notes: Malik Warning and Conditional Voluntary Guardianship: No Narrative: 52 year old single female. Lives by herself. Patient with a diagnosis of psychosis during a recent inpatient stay [place] [facility] She was brought to the hospital after someone called the police due to her being on a bridge and laying on the ground. She reported to the CARE team she went to the bridge with the intent to kill hersel by jumping off. To this telegraphic typewriter mechanic she acknowledges only she was feeling sad but wouldn't say she went there to kill herself and that she lay down on the ground because I was just tired and needed rest. She then follows by saying I will be fine , doctor. It'll be OK.. She is laying in bed, staring at the ceiling, flat affect and internally preoccupied while saying this. Patient was discharged from [facility] on 08/12/22 after a 10 day stay for psychosis and depression after the loss of her mother in January 2022. Team filed for a section 09/03 however she wasn't committed and subsequently discharged.She didn't attend her OP appointment that was scheduled post discharge. She wasn't taking the Abilify. She reports she took Abilify in the past and it was helpful and says she is willing to take it this admission. She denies AH today. She presented with delusional thoughts and psychosis during her previous hospital stay. She denies SI at this time. Past Psychiatric History: psych hosps: - July 2022 [facility] [place] - [place] and earlier. reports they were 2/2 breakups with her former boyfriend. SA: denies SIB: denies outpt: reports has zoom therapy with chastity keiry at [facility], none in several weeks, though. also has prescriber at [facility], states she [facility]. later acknowledges she has been prescribed abilify as well, which allowed her to feel more easy-going. Medical Evaluation Reviewed: Yes [facility] Family History: denies Social History: lives in own condo in [place], which was left to her by her mother when her mother February 22, 2022. she was living there with her mother at the time of her mother's passing. 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 11th grade. Never . Was in a 14 year relationship until 5 years ago. No children. Substance History: denies Trauma History: denies Diagnostics Vital Signs (24Hr): Vital Signs - 24 hr 08/29/22 17:23 08/29/22 21:28 08/30/22 09:30 Temperature 98.2 F 97.8 F Pulse Rate 96 84 Respiratory Rate 18 18 18 Blood Pressure 120/76 120/67 Pulse Oximetry 96 99 Oxygen Delivery Method Room Air Room Air BMI result Body Mass Index 22.8 Labs 08/28/22 00:35 08/30/22 07:15 Labs: Laboratory Results - last 48 hr 08/29/22 08/30/22 07:42 07:15 Sodium 141 Potassium 4.3 Chloride 105 Carbon Dioxide 26 Anion Gap 14 BUN 20 H Creatinine 0.71 Estim Creat Clear Calc 94.5 Estimated GFR > 60 Fasting Glucose 90 Calcium 9.8 Total Bilirubin 2.0 H AST 17 ALT 19 Alkaline Phosphatase 88 Total Protein 7.3 Albumin 4.0 Triglycerides 73 Cholesterol 121 LDL Cholesterol, Calc 75 HDL Cholesterol 32 COVID-19 ([facility]) Negative COVID-19 Clin Com See Note Meds/Allergies Meds Home Medications Medication Instructions Recorded Confirmed Type No Known Home Meds 08/27/22 08/27/22 History Allergies Allergies Allergy/AdvReac Type Severity Reaction Status Date / Time No Known Allergies Allergy Unverified 11/14/19 16:42 Mental Status Exam Mental Status Exam Patient Appearance: Appropriate and Unkempt Patient Orientation: Person, Place, Time and Situation Level of Consciousness: Awake and Alert Patient Behavior: Guarded, Cooperative, Timid, Avoidant, Fatigued and Poor Eye Contact Mood Description: Withdrawn, Depressed, Flat and Sad Affect Description: Withdrawn, Depressed, Flat and Sad Ability to Follow Directions: Good Speech Pattern: Clear, Impoverished, Soft-Spoken, Delayed and Long Pauses Memory Description: Episodic Impaired Hallucinations: None Delusions: Not Present (difficult to elicit, possible given history) Thought Process: Distracted and Slowed Thinking Thought Content: positive for Perseveration, positive for Poverty of Content and positive for Slowed Thinking Depressive Symptoms: Diff. Making Decisions, Hopelessness, Thoughts of /Suicide, Loss of Energy and Difficulty Concentrating Abnormal Motor Activity Signs and Symptoms: Psychomotor Retardation Judgement: Poor Assessment & Plan Assessment & Plan (1) Affective psychosis: Status: Acute Code(s): F39 - Unspecified mood [affective] disorder (2) Depression, major, recurrent, severe with psychosis: Status: Acute Code(s): F33.3 - Major depressive disorder, recurrent, severe with psychotic symptoms Assessment and Plan: RO schizoaffective disorder, depressed. 52 yo female with a recent inpatient psychiatric hospitalization for psychosis who was brought to the hospital after a bystander called the police because she was laying on the ground on a bridge. She had reported to the crisis team driving to the bridge with the intent of attempting suicide. She has been increasingly depressed and hopeless after the of her mother who was her main support in January 2022. Plan - Admit to M3 - CV - Restart Abilify 5 mg and titrate as per primary team and as tolerated and clinically necessary. - Group and milieu therapy and engagement. - Consider [facility]. - Collateral contacts. Patient educated on: diagnosis, medication risk/benefits and therapeutic strategies Reason for continued inpatient stay Substantial Risk for: harm to self, inability to function and rapid decompensation Statement Statement: I have reviewed the history and physical and performed a pertinent examination on my patient. No changes have occurred unless specified. If the History and Physical was not performed prior to admission, the Hospitalist's service will be consulted for completing the admission physical. Time Spent With Patient Time: Total time managing care of this patient today ____ minutes.
--- NOTE | 2022-08-30 16:59 | PC.NURSE ---
When staff was doing checks, pt was found laying naked on her stomach on her bedroom floor exposing herself to peers with the door wide open. Pt stated she wanted to lay on the floor because it was cooler. Staff educated patient regarding vulnerability of her being naked in a shared space. Pt was reluctant to put clothes on but eventually got dressed. Pt continues to lay on the floor.
[2022-08-30 19:13] VITALS: BP 120/68; PULSE 84; RESP 16; TEMP 36.3; O2SAT 99
[2022-08-31 08:00] VITALS: BP 113/71; PULSE 87; RESP 18; TEMP 36.2; O2SAT 96
--- NOTE | 2022-08-31 11:45 | PC.NURSE ---
Patient rescinded 3 day, provider aware
--- NOTE | 2022-08-31 14:24 | HO.PSYCHPN ---
Subjective Subjective Date of Service: 08/31/22 Reason For Visit: SI Interim History: found lying in the floor of her room, prone, clothed. awake and responsive, agreed to come with MD to interview room for interview. calm, cooperative. anxious to avoid court. ambivalent re withdrawing her 3-day notice but ultimately does. informed she may enter another at any time. pt took meds this morning. she was encouraged to continue to do so. she was vague, unable to describe her thoughts and emotional state when she drove to the bridge and lay down on it. per staff, sometimes answering in non-sequiturs. asking about discharge. i'll be fine. denies psychotic Sx. refused abilify on eves. had to be redirected to remain clothed. had been naked on the floor earlier in the day yesterday. Mental Status Exam Mental Status Exam Narrative: tense appearing, calm and cooperative. adequately dressed and groomed. no PMA/PMR. speech nml rate, decr amount. nml latency, flattened prosody. thoughts: terse. somewhat disorganized, impaired exectutive fxn. affect constricted, normo-intense, non-labile. no SI/SIBI/HI/AVH expressed. Diagnostics Vital Signs (24Hr): Vital Signs - 24 hr 08/30/22 19:13 08/31/22 08:00 Temperature 97.4 F 97.2 F Pulse Rate 84 87 Respiratory Rate 16 18 Blood Pressure 120/68 113/71 Pulse Oximetry 99 96 Oxygen Delivery Method Room Air Room Air BMI result Body Mass Index 22.8 Labs 08/28/22 00:35 08/30/22 07:15 Labs: Laboratory Results - last 48 hr 08/30/22 07:15 Sodium 141 Potassium 4.3 Chloride 105 Carbon Dioxide 26 Anion Gap 14 BUN 20 H Creatinine 0.71 Estim Creat Clear Calc 94.5 Estimated GFR > 60 Fasting Glucose 90 Calcium 9.8 Total Bilirubin 2.0 H AST 17 ALT 19 Alkaline Phosphatase 88 Total Protein 7.3 Albumin 4.0 Triglycerides 73 Cholesterol 121 LDL Cholesterol, Calc 75 HDL Cholesterol 32 Medications Medications Current Medications Acetaminophen (Acetaminophen 325 Mg Tablet) 650 mg PO Q6H PRN PRN Reason: Headache/Pain Mild Scale (1-3) Al Hydroxide/Mg Hydroxide (Magnesium Hydrox/Alum Hydrox 30 Ml Oral.Susp) 30 ml PO Q6H PRN PRN Reason: Heartburn/Nausea Aripiprazole (Aripiprazole 5 Mg Tablet) 5 mg PO DAILY STEVE Last Admin: 08/31/22 08:27 Dose: 5 mg Bisacodyl (Bisacodyl 5 Mg Tablet.Dr) 10 mg PO DAILY PRN PRN Reason: Constipation Hydroxyzine HCl (Hydroxyzine Hcl 25 Mg Tablet) 25 mg PO Q6H PRN PRN Reason: Anxiety Magnesium Hydroxide (Milk Of Magnesia 30 Ml Oral.Susp) 30 ml PO DAILY PRN PRN Reason: Constipation Trazodone HCl (Trazodone Hcl 50 Mg Tablet) 50 mg PO BEDTIME MRX1 PRN PRN Reason: Insomnia Allergies Allergies Allergy/AdvReac Type Severity Reaction Status Date / Time No Known Allergies Allergy Unverified 11/14/19 16:42 Assessment & Plan Assessment & Plan (1) Affective psychosis: Status: Acute Code(s): F39 - Unspecified mood [affective] disorder (2) Depression, major, recurrent, severe with psychosis: Status: Acute Code(s): F33.3 - Major depressive disorder, recurrent, severe with psychotic symptoms Assessment and Plan: RO schizoaffective disorder, depressed. 52 yo female with a recent inpatient psychiatric hospitalization for psychosis who was brought to the hospital after a bystander called the police because she was laying on the ground on a bridge. She had reported to the crisis team driving to the bridge with the intent of attempting suicide. She has been increasingly depressed and hopeless after the of her mother who was her main support in January 2022. Plan 08/30: Restart Abilify 5 mg and titrate as per primary team and as tolerated and clinically necessary. 08/31: compliant with abilify 5 mg this morning. retracted 3-day notice. relatively able to engage with others this morning. ambivalent and somewhat disorganized. Reason for continued inpatient stay Substantial Risk for: harm to self and rapid decompensation Time Spent With Patient Time: Total time managing care of this patient today __25__ minutes.
[2022-08-31 22:05] VITALS: BP 121/67; PULSE 95; TEMP 36.3; O2SAT 96
[2022-09-01 07:00] VITALS: BMI 22.3
[2022-09-01 07:58] VITALS: PULSE 87
[2022-09-01 08:00] VITALS: BP 117/80; PULSE 114; RESP 16; TEMP 36.1; O2SAT 99
[2022-09-01 08:02] VITALS: PULSE 128
--- NOTE | 2022-09-01 16:03 | HO.PSYCHPN ---
Subjective Subjective Date of Service: 09/01/22 Reason For Visit: SI Interim History: lying on her side on the floor. comes to interview room for interview. appears somewhat overwhelmed and disorganized in asking about when she might leave and whether or not she should enter another 3-day notice. wanting to avoid going to court remains her primary consideration, apparently, so no new 3-day notice is entered. states she is doing OK, no complaints or requests. very polite and apologetic. per staff, went to take a shower and was there about to get in and said, i can't go through with it, went back to her room. guarded, withdrawn, sleeping. keeping clothes on. Mental Status Exam Mental Status Exam Narrative: tense appearing, calm and cooperative. adequately dressed and groomed. no PMA/PMR. speech nml rate, decr amount. nml latency, flattened prosody. thoughts: terse. somewhat disorganized, impaired executive fxn. affect constricted, normo-intense, non-labile. no SI/SIBI/HI/AVH expressed. Diagnostics Vital Signs (24Hr): Vital Signs - 24 hr 08/31/22 22:05 09/01/22 08:00 09/01/22 07:58 Temperature 97.4 F 97.0 F Pulse Rate 95 114 H 87 Respiratory Rate 16 Blood Pressure 121/67 117/80 Pulse Oximetry 96 99 Oxygen Delivery Method Room Air Room Air 09/01/22 08:02 09/01/22 08:00 Temperature Pulse Rate 128 H 114 H Respiratory Rate Blood Pressure 117/80 Pulse Oximetry Oxygen Delivery Method BMI result Body Mass Index 22.3 Labs 08/28/22 00:35 08/30/22 07:15 Medications Medications Current Medications Acetaminophen (Acetaminophen 325 Mg Tablet) 650 mg PO Q6H PRN PRN Reason: Headache/Pain Mild Scale (1-3) Al Hydroxide/Mg Hydroxide (Magnesium Hydrox/Alum Hydrox 30 Ml Oral.Susp) 30 ml PO Q6H PRN PRN Reason: Heartburn/Nausea Aripiprazole (Aripiprazole 5 Mg Tablet) 5 mg PO DAILY STEVE Last Admin: 09/01/22 08:23 Dose: 5 mg Bisacodyl (Bisacodyl 5 Mg Tablet.) 10 mg PO DAILY PRN PRN Reason: Constipation Hydroxyzine HCl (Hydroxyzine Hcl 25 Mg Tablet) 25 mg PO Q6H PRN PRN Reason: Anxiety Magnesium Hydroxide (Milk Of Magnesia 30 Ml Oral.Susp) 30 ml PO DAILY PRN PRN Reason: Constipation Trazodone HCl (Trazodone Hcl 50 Mg Tablet) 50 mg PO BEDTIME MRX1 PRN PRN Reason: Insomnia Allergies Allergies Allergy/AdvReac Type Severity Reaction Status Date / Time No Known Allergies Allergy Unverified 11/14/19 16:42 Assessment & Plan Assessment & Plan (1) Affective psychosis: Status: Acute Code(s): F39 - Unspecified mood [affective] disorder (2) Depression, major, recurrent, severe with psychosis: Status: Acute Code(s): F33.3 - Major depressive disorder, recurrent, severe with psychotic symptoms Assessment and Plan: RO schizoaffective disorder, depressed. 52 yo female with a recent inpatient psychiatric hospitalization for psychosis who was brought to the hospital after a bystander called the police because she was laying on the ground on a bridge. She had reported to the crisis team driving to the bridge with the intent of attempting suicide. She has been increasingly depressed and hopeless after the of her mother who was her main support in January 2022. Plan 08/30: Restart Abilify 5 mg and titrate as per primary team and as tolerated and clinically necessary. 08/31: compliant with abilify 5 mg this morning. retracted 3-day notice. relatively able to engage with others this morning. ambivalent and somewhat disorganized. 09/01: compliant with abilify 5 again this morning. no change in presentation. continue current mgmt. Reason for continued inpatient stay Substantial Risk for: harm to self, inability to function and rapid decompensation Time Spent With Patient Time: Total time managing care of this patient today _25___ minutes.
[2022-09-01 20:00] VITALS: RESP 18
[2022-09-01] MEDS: Nicotine Polacrilex 2 MG GUM BUCCAL (21:36)
[2022-09-02 08:00] VITALS: BP 102/63; PULSE 105; RESP 16; TEMP 36.4; O2SAT 96
[2022-09-02] MEDS: Nicotine Polacrilex 2 MG GUM BUCCAL (10:20)
--- NOTE | 2022-09-02 13:45 | HO.PSYCHPN ---
Subjective Subjective Date of Service: 09/02/22 Reason For Visit: SI Interim History: pt lying on floor of her room, supine, pillow under head. reports no change in circumstance. broaches her having refused abilify this morning. she reports it is due to her feeling dizzy for a couple of hours after taking. she reluctantly agrees to switch administration time to HS. per staff, denies SI/HI/AVH. approachable. Mental Status Exam Mental Status Exam Narrative: tense appearing, calm and cooperative. adequately dressed and groomed. no PMA/PMR. speech nml rate, decr amount. nml latency, flattened prosody. thoughts: terse. somewhat linear in superficial interaction. affect constricted, normo-intense, non-labile. no SI/SIBI/HI/AVH expressed. Diagnostics Vital Signs (24Hr): Vital Signs - 24 hr 09/01/22 20:00 09/02/22 08:00 Temperature 97.6 F Pulse Rate 105 H Respiratory Rate 18 16 Blood Pressure 102/63 Pulse Oximetry 96 Oxygen Delivery Method Room Air BMI result Body Mass Index 22.3 Labs 08/28/22 00:35 08/30/22 07:15 Medications Medications Current Medications Acetaminophen (Acetaminophen 325 Mg Tablet) 650 mg PO Q6H PRN PRN Reason: Headache/Pain Mild Scale (1-3) Al Hydroxide/Mg Hydroxide (Magnesium Hydrox/Alum Hydrox 30 Ml Oral.Susp) 30 ml PO Q6H PRN PRN Reason: Heartburn/Nausea Aripiprazole (Aripiprazole 5 Mg Tablet) 5 mg PO DAILY STEVE Last Admin: 09/02/22 08:20 Dose: Not Given Bisacodyl (Bisacodyl 5 Mg Tablet.Dr) 10 mg PO DAILY PRN PRN Reason: Constipation Hydroxyzine HCl (Hydroxyzine Hcl 25 Mg Tablet) 25 mg PO Q6H PRN PRN Reason: Anxiety Magnesium Hydroxide (Milk Of Magnesia 30 Ml Oral.Susp) 30 ml PO DAILY PRN PRN Reason: Constipation Nicotine Polacrilex (Nicotine Polacrilex 2 Mg Gum) 2 mg BUCCAL Q2H PRN PRN Reason: Nicotine Cravings Last Admin: 09/02/22 10:20 Dose: 2 mg Trazodone HCl (Trazodone Hcl 50 Mg Tablet) 50 mg PO BEDTIME MRX1 PRN PRN Reason: Insomnia Allergies Allergies Allergy/AdvReac Type Severity Reaction Status Date / Time No Known Allergies Allergy Unverified 11/14/19 16:42 Assessment & Plan Assessment & Plan (1) Affective psychosis: Status: Acute Code(s): F39 - Unspecified mood [affective] disorder (2) Depression, major, recurrent, severe with psychosis: Status: Acute Code(s): F33.3 - Major depressive disorder, recurrent, severe with psychotic symptoms Assessment and Plan: RO schizoaffective disorder, depressed. 52 yo female with a recent inpatient psychiatric hospitalization for psychosis who was brought to the hospital after a bystander called the police because she was laying on the ground on a bridge. She had reported to the crisis team driving to the bridge with the intent of attempting suicide. She has been increasingly depressed and hopeless after the of her mother who was her main support in January 2022. Plan 08/30: Restart Abilify 5 mg and titrate as per primary team and as tolerated and clinically necessary. 08/31: compliant with abilify 5 mg this morning. retracted 3-day notice. relatively able to engage with others this morning. ambivalent and somewhat disorganized. 09/01: compliant with abilify 5 again this morning. no change in presentation. continue current mgmt. 09/02: refused abilify this morning, attributing refusal to dizziness for a couple hours after taking the medication. agrees to try HS administration as of tonight. no change in presentation: lying on the floor of her room, clothed. Reason for continued inpatient stay Substantial Risk for: harm to self, inability to function and rapid decompensation Time Spent With Patient Time: Total time managing care of this patient today __25__ minutes.
[2022-09-02 20:37] VITALS: BP 100/58; PULSE 84; RESP 18; TEMP 36.4; O2SAT 98
[2022-09-02] MEDS: ARIPiprazole 5 MG TABLET PO (20:43)
[2022-09-03] MEDS: Nicotine Polacrilex 2 MG GUM BUCCAL ×2 (09:12→18:20)
[2022-09-03] MEDS: bisacodyL 5 MG TABLET.DR 10 MG PO (09:12)
[2022-09-03 09:14] VITALS: BP 136/62; PULSE 86; RESP 16; TEMP 36.7; O2SAT 97
--- NOTE | 2022-09-03 16:26 | HO.PSYCHPN ---
Subjective Subjective Date of Service: 09/03/22 Reason For Visit: SI Interim History: lying in bed. took meds last night. calm and cooperative. asking about maybe leaving monday or monday. per staff, says she is fine. denies psych Sx. reported sleeping on floor 2/2 dizziness. took HS abilify last NOC. Mental Status Exam Mental Status Exam Narrative: slightly less tense appearing, calm and cooperative. adequately dressed and groomed. no PMA/PMR. speech nml rate, decr amount. nml latency, flattened prosody. thoughts: terse. linear in superficial interaction. affect constricted, normo-intense, non-labile. no SI/SIBI/HI/AVH expressed. Diagnostics Vital Signs (24Hr): Vital Signs - 24 hr 09/02/22 20:37 09/03/22 09:14 Temperature 97.6 F 98.0 F Pulse Rate 84 86 Respiratory Rate 18 16 Blood Pressure 100/58 L 136/62 Pulse Oximetry 98 97 Oxygen Delivery Method Room Air Room Air BMI result Body Mass Index 22.3 Labs 08/28/22 00:35 08/30/22 07:15 Medications Medications Current Medications Acetaminophen (Acetaminophen 325 Mg Tablet) 650 mg PO Q6H PRN PRN Reason: Headache/Pain Mild Scale (1-3) Al Hydroxide/Mg Hydroxide (Magnesium Hydrox/Alum Hydrox 30 Ml Oral.Susp) 30 ml PO Q6H PRN PRN Reason: Heartburn/Nausea Aripiprazole (Aripiprazole 5 Mg Tablet) 5 mg PO BEDTIME STEVE Last Admin: 09/02/22 20:43 Dose: 5 mg Bisacodyl (Bisacodyl 5 Mg Tablet.) 10 mg PO DAILY PRN PRN Reason: Constipation Last Admin: 09/03/22 09:12 Dose: 10 mg Hydroxyzine HCl (Hydroxyzine Hcl 25 Mg Tablet) 25 mg PO Q6H PRN PRN Reason: Anxiety Magnesium Hydroxide (Milk Of Magnesia 30 Ml Oral.Susp) 30 ml PO DAILY PRN PRN Reason: Constipation Nicotine Polacrilex (Nicotine Polacrilex 2 Mg Gum) 2 mg BUCCAL Q2H PRN PRN Reason: Nicotine Cravings Last Admin: 09/03/22 09:12 Dose: 2 mg Trazodone HCl (Trazodone Hcl 50 Mg Tablet) 50 mg PO BEDTIME MRX1 PRN PRN Reason: Insomnia Allergies Allergies Allergy/AdvReac Type Severity Reaction Status Date / Time No Known Allergies Allergy Unverified 11/14/19 16:42 Assessment & Plan Assessment & Plan (1) Affective psychosis: Status: Acute Code(s): F39 - Unspecified mood [affective] disorder (2) Depression, major, recurrent, severe with psychosis: Status: Acute Code(s): F33.3 - Major depressive disorder, recurrent, severe with psychotic symptoms Assessment and Plan: RO schizoaffective disorder, depressed. 52 yo female with a recent inpatient psychiatric hospitalization for psychosis who was brought to the hospital after a bystander called the police because she was laying on the ground on a bridge. She had reported to the crisis team driving to the bridge with the intent of attempting suicide. She has been increasingly depressed and hopeless after the of her mother who was her main support in January 2022. Plan 08/30: Restart Abilify 5 mg and titrate as per primary team and as tolerated and clinically necessary. 08/31: compliant with abilify 5 mg this morning. retracted 3-day notice. relatively able to engage with others this morning. ambivalent and somewhat disorganized. 09/01: compliant with abilify 5 again this morning. no change in presentation. continue current mgmt. 09/02: refused abilify this morning, attributing refusal to dizziness for a couple hours after taking the medication. agrees to try HS administration as of tonight. no change in presentation: lying on the floor of her room, clothed. 09/03: tolerated HS abilify last night. no change in presentation. continue current mgmt. Reason for continued inpatient stay Substantial Risk for: inability to function and rapid decompensation Time Spent With Patient Time: Total time managing care of this patient today ____ minutes.
[2022-09-03 20:35] VITALS: BP 120/61; PULSE 90; RESP 18; TEMP 36.6; O2SAT 97
[2022-09-03] MEDS: ARIPiprazole 5 MG TABLET PO (20:40)
[2022-09-04 07:00] VITALS: BP 111/68; PULSE 92; RESP 16; TEMP 36.7; O2SAT 97
[2022-09-04 08:00] VITALS: BP 110/58; PULSE 95; RESP 16; TEMP 36.4; O2SAT 97
[2022-09-04 13:56] VITALS: BP 115/68; PULSE 81; RESP 16; TEMP 36.5; O2SAT 98
--- NOTE | 2022-09-04 14:07 | PC.NURSE ---
Patient c/o dizzyness. VSS. No N/V. Encouraged to drink fluids. Intake poor. Will continue to monitor.
--- NOTE | 2022-09-04 15:14 | HO.PSYCHPN ---
Subjective Subjective Date of Service: 09/04/22 Reason For Visit: SI Interim History: calm, cooperative. c/o dizziness. discuss increasing fluids intake. took ativan and hydroxyzine last night, thinks perhaps that's related. agrees to DC hydroxyzine. asks for double ativan, in that case, agrees to 2 mg ativan for tonight with plan to give less moving forward and none at discharge. plan made that other medication to be used if regular sleeping aid is needed. pt asking about 3-day and also whether or not she can stay longer than next week if she continues to not feel well. per staff, limited participation. a little sad. eating and sleeping. some pacing. med compliant. Mental Status Exam Mental Status Exam Narrative: slightly less tense appearing, calm and cooperative. adequately dressed and groomed. no PMA/PMR. speech nml rate, decr amount. nml latency, flattened prosody. thoughts: terse. linear in superficial interaction. affect constricted, normo-intense, non-labile. no SI/SIBI/HI/AVH expressed. Diagnostics Vital Signs (24Hr): Vital Signs - 24 hr 09/03/22 20:35 09/04/22 08:00 09/04/22 13:56 Temperature 97.8 F 97.6 F 97.7 F Pulse Rate 90 95 81 Respiratory Rate 18 16 16 Blood Pressure 120/61 110/58 L 115/68 Pulse Oximetry 97 97 98 Oxygen Delivery Method Room Air Room Air Room Air BMI result Body Mass Index 22.3 Labs 08/28/22 00:35 08/30/22 07:15 Medications Medications Current Medications Acetaminophen (Acetaminophen 325 Mg Tablet) 650 mg PO Q6H PRN PRN Reason: Headache/Pain Mild Scale (1-3) Al Hydroxide/Mg Hydroxide (Magnesium Hydrox/Alum Hydrox 30 Ml Oral.Susp) 30 ml PO Q6H PRN PRN Reason: Heartburn/Nausea Aripiprazole (Aripiprazole 5 Mg Tablet) 5 mg PO BEDTIME STEVE Last Admin: 09/03/22 20:40 Dose: 5 mg Bisacodyl (Bisacodyl 5 Mg Tablet.) 10 mg PO DAILY PRN PRN Reason: Constipation Last Admin: 09/03/22 09:12 Dose: 10 mg Lorazepam (Lorazepam 1 Mg Tablet) 2 mg PO BEDTIME STEVE Magnesium Hydroxide (Milk Of Magnesia 30 Ml Oral.Susp) 30 ml PO DAILY PRN PRN Reason: Constipation Nicotine Polacrilex (Nicotine Polacrilex 2 Mg Gum) 2 mg BUCCAL Q2H PRN PRN Reason: Nicotine Cravings Last Admin: 09/03/22 18:20 Dose: 2 mg Trazodone HCl (Trazodone Hcl 50 Mg Tablet) 50 mg PO BEDTIME MRX1 PRN PRN Reason: Insomnia Allergies Allergies Allergy/AdvReac Type Severity Reaction Status Date / Time No Known Allergies Allergy Unverified 11/14/19 16:42 Assessment & Plan Assessment & Plan (1) Affective psychosis: Status: Acute Code(s): F39 - Unspecified mood [affective] disorder (2) Depression, major, recurrent, severe with psychosis: Status: Acute Code(s): F33.3 - Major depressive disorder, recurrent, severe with psychotic symptoms Assessment and Plan: RO schizoaffective disorder, depressed. 52 yo female with a recent inpatient psychiatric hospitalization for psychosis who was brought to the hospital after a bystander called the police because she was laying on the ground on a bridge. She had reported to the crisis team driving to the bridge with the intent of attempting suicide. She has been increasingly depressed and hopeless after the of her mother who was her main support in January 2022. Plan 08/30: Restart Abilify 5 mg and titrate as per primary team and as tolerated and clinically necessary. 08/31: compliant with abilify 5 mg this morning. retracted 3-day notice. relatively able to engage with others this morning. ambivalent and somewhat disorganized. 09/01: compliant with abilify 5 again this morning. no change in presentation. continue current mgmt. 09/02: refused abilify this morning, attributing refusal to dizziness for a couple hours after taking the medication. agrees to try HS administration as of tonight. no change in presentation: lying on the floor of her room, clothed. 09/03: tolerated HS abilify last night. no change in presentation. continue current mgmt. 09/04: took HS abilify but also hydroxyzine and ativan; c/o dizziness today. DC hydroxyzine. give ativan 2 mg tonight per pt request with plan to decrease moving forward and provide none at discharge. if nightly help is needed for sleep will find another medication. appears to be spending more time in bed than on the floor. Reason for continued inpatient stay Substantial Risk for: harm to self, inability to function and rapid decompensation Time Spent With Patient Time: Total time managing care of this patient today ____ minutes.
[2022-09-04] MEDS: Nicotine Polacrilex 2 MG GUM BUCCAL (17:30)
[2022-09-04] MEDS: ARIPiprazole 5 MG TABLET PO (20:33)
[2022-09-05 08:00] VITALS: BP 123/80; PULSE 99; RESP 16; TEMP 36.4; O2SAT 97
--- NOTE | 2022-09-05 15:02 | HO.PSYCHPN ---
Subjective Subjective Date of Service: 09/05/22 Reason For Visit: SI Interim History: calm, cooperative. more in touch with and able to express her sadness at the loss of her mother. thinking she may want to stay here another week or so. less distant and psychotic appearing. dizzy last night, agrees to decrease ativan from 2 mg QHS to 1 mg QHS. per staff, minimal interactions with peers. no groups. c/o dizziness. pleasant but flat. pacing, napping, staring. screaming HELP due to feeling dizzy last evening. VS WNL. Mental Status Exam Mental Status Exam Narrative: slightly less tense appearing, calm and cooperative. adequately dressed and groomed. no PMA/PMR. speech nml rate, decr amount. nml latency, flattened prosody. thoughts: terse. linear in superficial interaction. affect constricted, normo-intense, non-labile. no SI/SIBI/HI/AVH expressed. Diagnostics Vital Signs (24Hr): Vital Signs - 24 hr 09/05/22 08:00 Temperature 97.6 F Pulse Rate 99 Respiratory Rate 16 Blood Pressure 123/80 Pulse Oximetry 97 Oxygen Delivery Method Room Air BMI result Body Mass Index 22.3 Labs 08/28/22 00:35 08/30/22 07:15 Medications Medications Current Medications Acetaminophen (Acetaminophen 325 Mg Tablet) 650 mg PO Q6H PRN PRN Reason: Headache/Pain Mild Scale (1-3) Al Hydroxide/Mg Hydroxide (Magnesium Hydrox/Alum Hydrox 30 Ml Oral.Susp) 30 ml PO Q6H PRN PRN Reason: Heartburn/Nausea Aripiprazole (Aripiprazole 5 Mg Tablet) 5 mg PO BEDTIME STEVE Last Admin: 09/04/22 20:33 Dose: 5 mg Bisacodyl (Bisacodyl 5 Mg Tablet.Dr) 10 mg PO DAILY PRN PRN Reason: Constipation Last Admin: 09/03/22 09:12 Dose: 10 mg Lorazepam (Lorazepam 1 Mg Tablet) 1 mg PO BEDTIME STEVE Magnesium Hydroxide (Milk Of Magnesia 30 Ml Oral.Susp) 30 ml PO DAILY PRN PRN Reason: Constipation Nicotine Polacrilex (Nicotine Polacrilex 2 Mg Gum) 2 mg BUCCAL Q2H PRN PRN Reason: Nicotine Cravings Last Admin: 09/04/22 17:30 Dose: 2 mg Trazodone HCl (Trazodone Hcl 50 Mg Tablet) 50 mg PO BEDTIME MRX1 PRN PRN Reason: Insomnia Allergies Allergies Allergy/AdvReac Type Severity Reaction Status Date / Time No Known Allergies Allergy Unverified 11/14/19 16:42 Assessment & Plan Assessment & Plan (1) Affective psychosis: Status: Acute Code(s): F39 - Unspecified mood [affective] disorder (2) Depression, major, recurrent, severe with psychosis: Status: Acute Code(s): F33.3 - Major depressive disorder, recurrent, severe with psychotic symptoms Assessment and Plan: RO schizoaffective disorder, depressed. 52 yo female with a recent inpatient psychiatric hospitalization for psychosis who was brought to the hospital after a bystander called the police because she was laying on the ground on a bridge. She had reported to the crisis team driving to the bridge with the intent of attempting suicide. She has been increasingly depressed and hopeless after the of her mother who was her main support in January 2022. Plan 08/30: Restart Abilify 5 mg and titrate as per primary team and as tolerated and clinically necessary. 08/31: compliant with abilify 5 mg this morning. retracted 3-day notice. relatively able to engage with others this morning. ambivalent and somewhat disorganized. 09/01: compliant with abilify 5 again this morning. no change in presentation. continue current mgmt. 09/02: refused abilify this morning, attributing refusal to dizziness for a couple hours after taking the medication. agrees to try HS administration as of tonight. no change in presentation: lying on the floor of her room, clothed. 09/03: tolerated HS abilify last night. no change in presentation. continue current mgmt. 09/04: took HS abilify but also hydroxyzine and ativan; c/o dizziness today. DC hydroxyzine. give ativan 2 mg tonight per pt request with plan to decrease moving forward and provide none at discharge. if nightly help is needed for sleep will find another medication. appears to be spending more time in bed than on the floor. 09/05: expressing sadness at loss of mother, comes across as less psychotic and more depressed. bout of dizziness last night, agrees to decrease ativan to 1 mg at HS rather than 2. thinking of staying another week. Reason for continued inpatient stay Substantial Risk for: harm to self, inability to function and rapid decompensation Time Spent With Patient Time: Total time managing care of this patient today _25___ minutes.
[2022-09-05 20:31] VITALS: BP 98/63; PULSE 89; RESP 16; TEMP 36.4; O2SAT 98
[2022-09-05] MEDS: LORazepam 1 MG TABLET PO (20:56)
[2022-09-05] MEDS: ARIPiprazole 5 MG TABLET PO (20:56)
[2022-09-05] MEDS: traZODone HCL 50 MG TABLET PO (20:56)
[2022-09-06 09:00] VITALS: BP 99/64; PULSE 100; O2SAT 96
[2022-09-06] MEDS: bisacodyL 5 MG TABLET.DR 10 MG PO (09:55)
--- NOTE | 2022-09-06 15:27 | HO.PSYCHPN ---
Subjective Subjective Date of Service: 09/06/22 Reason For Visit: SI Interim History: continued gains - more insightful, forthcoming. c/o feeling tired this morning, trazodone dosing decreased. no dizziness today. per staff w/drawn, pacing. tearful. misses her mother. denies psych Sx. anx/dep 5. denies AVH. feels not ready for DC. got trazodone last NOC. attended 2 groups yesterday, participated well. Mental Status Exam Mental Status Exam Narrative: less tense appearing, calm and cooperative. adequately dressed and groomed. no PMA/PMR. speech nml rate, amount. nml latency, flattened prosody. thoughts: linear and logical. affect constricted, normo-intense, non-labile. no SI/SIBI/HI/AVH expressed. Diagnostics Vital Signs (24Hr): Vital Signs - 24 hr 09/05/22 20:31 09/06/22 09:00 Temperature 97.6 F Pulse Rate 89 100 Respiratory Rate 16 Blood Pressure 98/63 99/64 Pulse Oximetry 98 96 Oxygen Delivery Method Room Air Room Air BMI result Body Mass Index 22.3 Labs 08/28/22 00:35 08/30/22 07:15 Medications Medications Current Medications Acetaminophen (Acetaminophen 325 Mg Tablet) 650 mg PO Q6H PRN PRN Reason: Headache/Pain Mild Scale (1-3) Al Hydroxide/Mg Hydroxide (Magnesium Hydrox/Alum Hydrox 30 Ml Oral.Susp) 30 ml PO Q6H PRN PRN Reason: Heartburn/Nausea Aripiprazole (Aripiprazole 5 Mg Tablet) 5 mg PO BEDTIME [facility] Last Admin: 09/05/22 20:56 Dose: 5 mg Bisacodyl (Bisacodyl 5 Mg Tablet.Dr) 10 mg PO DAILY PRN PRN Reason: Constipation Last Admin: 09/06/22 09:55 Dose: 10 mg Lorazepam (Lorazepam 1 Mg Tablet) 1 mg PO BEDTIME STEVE Last Admin: 09/05/22 20:56 Dose: 1 mg Magnesium Hydroxide (Milk Of Magnesia 30 Ml Oral.Susp) 30 ml PO DAILY PRN PRN Reason: Constipation Nicotine Polacrilex (Nicotine Polacrilex 2 Mg Gum) 2 mg BUCCAL Q2H PRN PRN Reason: Nicotine Cravings Last Admin: 09/04/22 17:30 Dose: 2 mg Trazodone HCl (Trazodone Hcl 25 Mg Halftab) 25 mg PO BEDTIME MRX1 PRN PRN Reason: Insomnia Allergies Allergies Allergy/AdvReac Type Severity Reaction Status Date / Time No Known Allergies Allergy Unverified 11/14/19 16:42 Assessment & Plan Assessment & Plan (1) Affective psychosis: Status: Acute Code(s): F39 - Unspecified mood [affective] disorder (2) Depression, major, recurrent, severe with psychosis: Status: Acute Code(s): F33.3 - Major depressive disorder, recurrent, severe with psychotic symptoms Assessment and Plan: RO schizoaffective disorder, depressed. 52 yo female with a recent inpatient psychiatric hospitalization for psychosis who was brought to the hospital after a bystander called the police because she was laying on the ground on a bridge. She had reported to the crisis team driving to the bridge with the intent of attempting suicide. She has been increasingly depressed and hopeless after the of her mother who was her main support in January 2022. Plan 08/30: Restart Abilify 5 mg and titrate as per primary team and as tolerated and clinically necessary. 08/31: compliant with abilify 5 mg this morning. retracted 3-day notice. relatively able to engage with others this morning. ambivalent and somewhat disorganized. 09/01: compliant with abilify 5 again this morning. no change in presentation. continue current mgmt. 09/02: refused abilify this morning, attributing refusal to dizziness for a couple hours after taking the medication. agrees to try HS administration as of tonight. no change in presentation: lying on the floor of her room, clothed. 09/03: tolerated HS abilify last night. no change in presentation. continue current mgmt. 09/04: took HS abilify but also hydroxyzine and ativan; c/o dizziness today. DC hydroxyzine. give ativan 2 mg tonight per pt request with plan to decrease moving forward and provide none at discharge. if nightly help is needed for sleep will find another medication. appears to be spending more time in bed than on the floor. 09/05: expressing sadness at loss of mother, comes across as less psychotic and more depressed. bout of dizziness last night, agrees to decrease ativan to 1 mg at HS rather than 2. thinking of staying another week. 09/06: stably improved. trazodone PRN of 50 may be too much, decreased to 25 mg as of tonight. otherwise continue current mgmt. Reason for continued inpatient stay Substantial Risk for: inability to function and rapid decompensation Time Spent With Patient Time: Total time managing care of this patient today _25___ minutes.
[2022-09-06] MEDS: Nicotine Polacrilex 2 MG GUM BUCCAL (18:08)
[2022-09-06 20:00] VITALS: BP 100/56; PULSE 88; RESP 16; TEMP 36.4; O2SAT 97
[2022-09-06] MEDS: LORazepam 1 MG TABLET PO (20:02)
[2022-09-06] MEDS: traZODone HCL 25 MG HALFTAB PO (20:03)
[2022-09-06] MEDS: ARIPiprazole 5 MG TABLET PO (20:03)
[2022-09-06] MEDS: Milk of Magnesia 30 ML ORAL.SUSP PO (20:09)
[2022-09-07 10:13] VITALS: BP 105/66; PULSE 100; TEMP 36.6; O2SAT 96
[2022-09-07] MEDS: Nicotine Polacrilex 2 MG GUM BUCCAL ×2 (12:04→18:33)
[2022-09-07] MEDS: bisacodyL 5 MG TABLET.DR 10 MG PO (12:55)
--- NOTE | 2022-09-07 14:46 | HO.PSYCHPN ---
Subjective Subjective Date of Service: 09/07/22 Reason For Visit: SI Interim History: calm, cooperative. tearful in discussing her loneliness since the loss of her mother. asking for discharge soon. otherwise reports things seem to be going reasonably well. per staff, attended 2 groups yesterday. sleeping well. c/om constipation, got dulcolax and then MOM. some anxiety. isolative. took trazodone last night. Mental Status Exam Mental Status Exam Narrative: less tense appearing, calm and cooperative. adequately dressed and groomed. no PMA/PMR. speech nml rate, amount. nml latency, flattened prosody. thoughts: linear and logical. affect constricted, normo-intense, non-labile. no SI/SIBI/HI/AVH expressed. Diagnostics Vital Signs (24Hr): Vital Signs - 24 hr 09/06/22 20:00 09/07/22 10:13 Temperature 97.5 F 97.8 F Pulse Rate 88 100 Respiratory Rate 16 Blood Pressure 100/56 L 105/66 Pulse Oximetry 97 96 Oxygen Delivery Method Room Air Room Air BMI result Body Mass Index 22.3 Labs 08/28/22 00:35 08/30/22 07:15 Medications Medications Current Medications Acetaminophen (Acetaminophen 325 Mg Tablet) 650 mg PO Q6H PRN PRN Reason: Headache/Pain Mild Scale (1-3) Al Hydroxide/Mg Hydroxide (Magnesium Hydrox/Alum Hydrox 30 Ml Oral.Susp) 30 ml PO Q6H PRN PRN Reason: Heartburn/Nausea Aripiprazole (Aripiprazole 5 Mg Tablet) 5 mg PO BEDTIME STEVE Last Admin: 09/06/22 20:03 Dose: 5 mg Bisacodyl (Bisacodyl 5 Mg Tablet.Dr) 10 mg PO DAILY PRN PRN Reason: Constipation Last Admin: 09/07/22 12:55 Dose: 10 mg Lorazepam (Lorazepam 1 Mg Tablet) 1 mg PO BEDTIME STEVE Last Admin: 09/06/22 20:02 Dose: 1 mg Magnesium Hydroxide (Milk Of Magnesia 30 Ml Oral.Susp) 30 ml PO DAILY PRN PRN Reason: Constipation Last Admin: 09/06/22 20:09 Dose: 30 ml Nicotine Polacrilex (Nicotine Polacrilex 2 Mg Gum) 2 mg BUCCAL Q2H PRN PRN Reason: Nicotine Cravings Last Admin: 09/07/22 12:04 Dose: 2 mg Trazodone HCl (Trazodone Hcl 25 Mg Halftab) 25 mg PO BEDTIME MRX1 PRN PRN Reason: Insomnia Last Admin: 09/06/22 20:03 Dose: 25 mg Allergies Allergies Allergy/AdvReac Type Severity Reaction Status Date / Time No Known Allergies Allergy Unverified 11/14/19 16:42 Assessment & Plan Assessment & Plan (1) Affective psychosis: Status: Acute Code(s): F39 - Unspecified mood [affective] disorder (2) Depression, major, recurrent, severe with psychosis: Status: Acute Code(s): F33.3 - Major depressive disorder, recurrent, severe with psychotic symptoms Assessment and Plan: RO schizoaffective disorder, depressed. 52 yo female with a recent inpatient psychiatric hospitalization for psychosis who was brought to the hospital after a bystander called the police because she was laying on the ground on a bridge. She had reported to the crisis team driving to the bridge with the intent of attempting suicide. She has been increasingly depressed and hopeless after the of her mother who was her main support in January 2022. Plan 08/30: Restart Abilify 5 mg and titrate as per primary team and as tolerated and clinically necessary. 08/31: compliant with abilify 5 mg this morning. retracted 3-day notice. relatively able to engage with others this morning. ambivalent and somewhat disorganized. 09/01: compliant with abilify 5 again this morning. no change in presentation. continue current mgmt. 09/02: refused abilify this morning, attributing refusal to dizziness for a couple hours after taking the medication. agrees to try HS administration as of tonight. no change in presentation: lying on the floor of her room, clothed. 09/03: tolerated HS abilify last night. no change in presentation. continue current mgmt. 09/04: took HS abilify but also hydroxyzine and ativan; c/o dizziness today. DC hydroxyzine. give ativan 2 mg tonight per pt request with plan to decrease moving forward and provide none at discharge. if nightly help is needed for sleep will find another medication. appears to be spending more time in bed than on the floor. 09/05: expressing sadness at loss of mother, comes across as less psychotic and more depressed. bout of dizziness last night, agrees to decrease ativan to 1 mg at HS rather than 2. thinking of staying another week. 09/06: stably improved. trazodone PRN of 50 may be too much, decreased to 25 mg as of tonight. otherwise continue current mgmt. 09/07: gains continue. asking for discharge. spent time on phone today ensuring her car was in a safe place. talking with SW about the need to get a job. appears organized. planning for DC monday. Reason for continued inpatient stay Substantial Risk for: inability to function and rapid decompensation Time Spent With Patient Time: Total time managing care of this patient today __25__ minutes.
[2022-09-07 20:15] VITALS: BP 105/65; PULSE 112; RESP 18; TEMP 36.3; O2SAT 96
[2022-09-07] MEDS: LORazepam 1 MG TABLET PO ×2 (20:21→20:56)
[2022-09-07] MEDS: ARIPiprazole 5 MG TABLET PO (20:21)
[2022-09-07] MEDS: traZODone HCL 25 MG HALFTAB PO (22:16)
[2022-09-08 07:00] VITALS: BMI 22.7
[2022-09-08 09:15] VITALS: BP 111/62; PULSE 88; RESP 16; TEMP 36.3; O2SAT 97
[2022-09-08] MEDS: bisacodyL 5 MG TABLET.DR 10 MG PO (10:11)
[2022-09-08] MEDS: Nicotine Polacrilex 2 MG GUM BUCCAL ×2 (10:11→14:26)
--- NOTE | 2022-09-08 10:41 | PM.PSYDC ---
DS: Providers Provider Date of Service: 09/08/22 Date of admission: 08/29/22 16:25 Primary care physician: Unknown Physician DS: Diagnosis Discharge Diagnosis (1) Affective psychosis: Status: Acute (2) Depression, major, recurrent, severe with psychosis: Status: Acute DS: Medications Discharge Medications Home Medications: Previous Rx's Medication Instructions Recorded aripiprazole 5 mg tablet (Abilify) 5 mg PO BEDTIME 30 days #30 tabs 09/08/22 lorazepam 1 mg tablet 1.5 mg PO BEDTIME 30 days #45 tabs 09/08/22 Mental Status Exam Mental Status Exam Narrative: less tense appearing, calm and cooperative. adequately dressed and groomed. no PMA/PMR. speech nml rate, amount. nml latency, flattened prosody. thoughts: linear and logical. affect constricted, normo-intense, non-labile. mood good. no SI/SIBI/HI/AVH. DS: Summary Hospital Course Hospital Course: per 08/30 admission note: 52 year old single female. Lives by herself. Patient with a diagnosis of psychosis during a recent inpatient stay at [facility]. She was brought to the hospital after someone called the police due to her being on a bridge and laying on the ground. She reported to the CARE team she went to the bridge with the intent to kill hersel by jumping off. To this residential mortgage underwriter she acknowledges only she was feeling sad but wouldn't say she went there to kill herself and that she lay down on the ground because I was just tired and needed rest. She then follows by saying I will be fine sir, doctor. It'll be OK.. She is laying in bed, staring at the ceiling, flat affect and internally preoccupied while saying this. Patient was discharged from [facility] on 08/12/22 after a 10 day stay for psychosis and depression after the loss of her mother in January 2022. Team filed for a section 09/03 however she wasn't committed and subsequently discharged.She didn't attend her OP appointment that was scheduled post discharge. She wasn't taking the Abilify. She reports she took Abilify in the past and it was helpful and says she is willing to take it this admission. She denies AH today. She presented with delusional thoughts and psychosis during her previous hospital stay. She denies SI at this time. ?? Past Psychiatric History: psych hosps:? - July 2022 [facility] M3 - 2015 and earlier.? reports they were 2/2 breakups with her former boyfriend. SA:? denies SIB:? denies outpt: reports has zoom therapy with chastity ricci at [facility], none in several weeks, though. also has prescriber at [facility], states she was prescribed ativan most recently. later acknowledges she has been prescribed abilify as well, which allowed her to feel more easy-going. Medical Evaluation Reviewed: Yes [facility] Family History: denies Social History: lives in own condo in [place], which was left to her by her mother when her mother February 22, 2022.? she was living there with her mother at the time of her mother's passing.? 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 11th grade. Never . Was in a 14 year relationship until 5 years ago. No children. Substance History: denies Trauma History: denies Precis: 52 yo female with a recent inpatient psychiatric hospitalization for psychosis who was brought to the hospital after? a bystander called the police because she was laying on the ground on a bridge. She had reported to the crisis team driving to the bridge with the intent of attempting suicide. She has been increasingly depressed and hopeless after the of her mother who was her main support in January 2022. 08/30:? Restart Abilify 5 mg and titrate as per primary team and as tolerated and clinically necessary. 08/31:? compliant with abilify 5 mg this morning.? retracted 3-day notice.? relatively able to engage with others this morning.? ambivalent and somewhat disorganized. 09/01:? compliant with abilify 5 again this morning.? no change in presentation.? continue current mgmt. 09/02:? refused abilify this morning, attributing refusal to dizziness for a couple hours after taking the medication.? agrees to try HS administration as of tonight.? no change in presentation: lying on the floor of her room, clothed. 09/03:? tolerated HS abilify last night.? no change in presentation.? continue current mgmt. 09/04:? took HS abilify but also hydroxyzine and ativan; c/o dizziness today.? DC hydroxyzine.? give ativan 2 mg tonight per pt request with plan to decrease moving forward and provide none at discharge.? if nightly help is needed for sleep will find another medication.? appears to be spending more time in bed than on the floor. 09/05:? expressing sadness at loss of mother, comes across as less psychotic and more depressed.? bout of dizziness last night, agrees to decrease ativan to 1 mg at HS rather than 2.? thinking of staying another week. 09/06:? stably improved.? trazodone PRN of 50 may be too much, decreased to 25 mg as of tonight.? otherwise continue current mgmt. 09/07:? gains continue.? asking for discharge.? spent time on phone today ensuring her car was in a safe place.? talking with SW about the need to get a job.? appears organized.? planning for DC monday. 09/08: discharge tomorrow. meds reviewed, reconciled, prescribed. stable presentation. lonely, misses her mother. 09/09: stable presentation. assures will not harm herself. discharged to outpt care as per plan. Time Spent with Patient Time attestation: Total time managing care of this patient today ____ minutes. Time spent: Greater than 30 minutes Discharge Plan Discharge Anticipated Discharge Date/Time: 09/09/22 11:00 Patient Disposition: Home, Self-Care Discharge Diagnosis: Major Depressive Disorder with Psychotic Features Referrals: Therapy & Psychiatry [Other] - 09/13/22 4:00 pm (You are scheduled for an intake appointment with Hilaria Levin. During this appointment you will be set up with follow up therapy, psychiatry and case management appointments Your appointment will take place via zoom) [place] [Physician] - 1 Week Discharge Medications: New lorazepam 1 mg Tablet 1.5 mg PO BEDTIME 30 Days Qty: 45 0RF aripiprazole [Abilify] 5 mg Tablet 5 mg PO BEDTIME 30 Days Qty: 30 0RF Discharge Orders: Discharge Order (Routine); Ordered 09/09/22 Ordered By: Hung Mullins Diet: Advance to usual diet Activity on Discharge: As tolerated Stand Alone Forms: Patient Portal Discharge page, Community Support Care Plan Goals: remain safe and stable in the outpatient treatment setting Health Concerns: none Plan of Treatment: take medications as prescribed, attend appointments as scheduled Assessment: not at imminent risk of harm to self or others Discharge Date/Time: 09/09/22 11:20
[2022-09-08] MEDS: Nicotine 21 MG PATCH.TD24 TRANSDERMA (15:17)
[2022-09-08 20:40] VITALS: BP 116/69; PULSE 111; RESP 18; TEMP 36.4; O2SAT 95
[2022-09-08] MEDS: LORazepam 1 MG TABLET PO (20:46)
[2022-09-08] MEDS: ARIPiprazole 5 MG TABLET PO (20:46)
[2022-09-08] MEDS: traZODone HCL 25 MG HALFTAB PO (21:46)
[2022-09-09] MEDS: Nicotine 21 MG PATCH.TD24 TRANSDERMA (08:42)
[2022-09-09 08:50] VITALS: BP 107/59; PULSE 85; RESP 18; TEMP 35.9; O2SAT 96
[2022-09-09] MEDS: ARIPiprazole 5 MG TABLET PO (10:53)
== END 2022-09-09 11:20 | disposition home or self-care (01) | DRG 751 ==
LOC: HO.ED 08-28 07:19 → HO.PADLT16 08-29 16:30
PROVIDERS: Emergency Medicine; Admitting Provider Psychiatry & Neurology Psychiatry; Emergency Provider Emergency Medicine Emergency Medical Services; Visit Provider Psychiatry & Neurology Psychiatry
DX: F33.3 Major depressive disorder, recurrent, severe with psychotic symptoms (principal); R45.851 Suicidal ideations; F17.210 Nicotine dependence, cigarettes, uncomplicated; Z71.6 Tobacco abuse counseling; Z20.822 Contact with and (suspected) exposure to COVID-19; Z79.899 Other long term (current) drug therapy
CPT/HCPCS: 36415; 80053; 80061; 80307; 81001; 85025; 87635; 93005; 99285; S9485

== ENCOUNTER → 2022-08-29 16:25 | Outpatient (BNV) | payer OTHER, SELFPAY | PROVIDERS: Admitting Provider Psychiatry & Neurology Psychiatry; Emergency Provider Emergency Medicine Emergency Medical Services; Visit Provider Psychiatry & Neurology Psychiatry | DX: F33.3 Major depressive disorder, recurrent, severe with psychotic symptoms (principal); F39 Unspecified mood [affective] disorder | CPT/HCPCS: 99231; 99232; 99233 ==